=== PATIENT | female | born 1990 | race Caucasian/White ===

== ENCOUNTER 2022-04-05 12:18 | Emergency (ER) | payer OTHER, SELFPAY ==
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
[2022-04-05 12:33] VITALS: BP 115/56; PULSE 64; RESP 16; TEMP 36.6; O2SAT 97; BMI 25.7
[2022-04-05] MEDS: Cyclobenzaprine HCl 10 MG TABLET PO (13:28)
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
== END 2022-04-05 18:48 | disposition home or self-care (01) ==
PROVIDERS: Emergency Provider Emergency Medicine
DX: S06.0X1A Concussion with loss of consciousness of 30 minutes or less, initial encounter (principal); S13.4XXA Sprain of ligaments of cervical spine, initial encounter; S29.012A Strain of muscle and tendon of back wall of thorax, initial encounter; S39.012A Strain of muscle, fascia and tendon of lower back, initial encounter; V43.02XA Car driver injured in collision with other type car in nontraffic accident, initial encounter; Y93.89 Activity, other specified; Y92.481 Parking lot as the place of occurrence of the external cause; Y99.9 Unspecified external cause status
CPT/HCPCS: 70450; 72072; 72100; 72125; 99283; 99284

== ENCOUNTER 2023-04-07 20:27 | Emergency (ER) | payer MEDICARE, MEDICAID, SELFPAY ==
--- NOTE | 2023-04-07 20:30 | ECG_ITS ---
Test Reason : CP Blood Pressure : / mmHG Vent. Rate : 072 BPM Atrial Rate : 072 BPM P-R Int : 122 ms QRS Dur : 090 ms QT Int : 408 ms P-R-T Axes : 081 064 056 degrees QTc Int : 446 ms Normal sinus rhythm Possible Anterior infarct , age undetermined Abnormal ECG No previous ECGs available Referred By: Generic ED Physician Electronically Signed By:Andry Lance
[2023-04-07 20:39] VITALS: BP 115/51; BP 130/70; PULSE 76; PULSE 79; RESP 18; TEMP 36.6; O2SAT 100; O2SAT 99; BMI 17.2
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
[2023-04-07 22:03] LABS: Basophils Absolute Auto 0.1 X10*3/uL (0.0-0.2); Basophils Percent Auto 0.6 % (0-2); Eosinophils Absolute Auto 0.2 X10*3/uL (0.0-0.4); Eosinophils Percent Auto 1.6 % (0-4); Hematocrit 25.9 % (37.0-47.0); Hemoglobin 7.6 g/dl (12.0-16.0); Imm Gran Abs Auto 0.04 X10*3/uL (0.00-0.03); Imm Gran Pct Auto 0.4 % (0.0-0.4); Lymphocytes Absolute Auto 1.9 X10*3/uL (1.2-4.9); Lymphocytes Percent Auto 17.6 % (20-40); MANUAL DIFF FLAG NO; Mean Corpuscular HGB Conc 29.3 g/dl (31.0-35.0); Mean Corpuscular Hemoglobin 20.7 pg (27.0-33.0); Mean Corpuscular Volume 70.6 fL (80.0-98.0); Monocytes Absolute Auto 0.9 X10*3/uL (0.1-1.2); Neutrophils Absolute Auto 7.9 x10*3/uL (2.0-8.3); Neutrophils Percent Auto 71.8 % (45-73); Platelet Count 386 X10*3/uL (160-400); Red Blood Count 3.67 X10*6/uL (4.20-5.50); Red Cell Distribution Width 17.4 % (11.0-16.0)
[2023-04-07 22:17] LABS: Anion Gap 17 (12-20); Blood Urea Nitrogen 13 mg/dL (9-16); Calcium 9.6 mg/dL (8.4-10.2); Carbon Dioxide 19 mmol/L (22-29); Chloride 107 mmol/L (96-108); Creatinine Clr Calc Pharmacy 75.7; Estimated Glomerular Filt Rate > 60; Glucose Random 90 mg/dL (60-115); Potassium 3.6 mmol/L (3.3-5.1); Sodium 139 mmol/L (135-145)
[2023-04-07 22:19] LABS: Alanine Aminotransferase 16 U/L (0-31); Alkaline Phosphatase 91 U/L (39-117); Aspartate Amino Transferase 21 U/L (5-31); Bilirubin Direct 0.1 mg/dL (0.0-0.5); Bilirubin Total 0.3 mg/dL (0.0-1.0); Total Protein 8.3 g/dL (6.5-8.0)
[2023-04-07 22:30] LABS: Troponin-I High Sensitivity < 2.7 ng/L (<3.5-17.0)
[2023-04-08] MEDS: Doxycycline Monohydrate 100 MG CAPSULE PO (00:30)
[2023-04-08 00:40] VITALS: BP 109/60; PULSE 67; RESP 12; O2SAT 96
== END 2023-04-08 00:50 | disposition home or self-care (01) ==
PROVIDERS: Physician Assistant Medical; Emergency Provider Internal Medicine
DX: R07.89 Other chest pain (principal); F14.10 Cocaine abuse, uncomplicated; A49.02 Methicillin resistant Staphylococcus aureus infection, unspecified site; Z79.899 Other long term (current) drug therapy
CPT/HCPCS: 36415; 80048; 80076; 84484; 85025; 93005; 99283; 99284

== ENCOUNTER → 2023-04-07 20:30 | Outpatient (BNV) | payer MEDICARE, MEDICAID, SELFPAY | PROVIDERS: Emergency Provider Internal Medicine; Visit Provider Internal Medicine Cardiovascular Disease | DX: R94.31 Abnormal electrocardiogram [ECG] [EKG] (principal) | CPT/HCPCS: 93010 ==

== ENCOUNTER 2025-04-05 17:46 | Inpatient (IN) | payer MEDICARE, MEDICAID, SELFPAY ==
--- NOTE | ~2025-04-05 | CT_ITS ---
CLINICAL HISTORY: infection abscess osteo? CT LEFT UPPER EXTREMITY WITH CONTRAST COMPARISON: None provided. FINDINGS: The left forearm was scanned. No evidence of an acute fracture or dislocation within the left forearm. No aggressive lytic lesion or aggressive periosteal reaction to suggest osteomyelitis. No soft tissue gas. Multifocal confluent areas of soft tissue edema/fluid and stranding/inflammation are noted. Some areas of more confluent stranding are noted, for example seen on axial image 365 of series 7. A curvilinear area of more confluent edema/fluid is noted in the proximal forearm on axial image 337. Exact dimensions are difficult to quantify but this is estimated to measure approximately 1.7 x 0.4 cm. IMPRESSION: 1. No evidence of an acute fracture or dislocation. No evidence of osteomyelitis. No soft tissue gas. 2. Multifocal confluent areas of edema/fluid and stranding/inflammation are noted, as detailed above. A curvilinear area of more confluent edema/fluid is noted in the proximal forearm and measures 1.7 x 0.4 cm. Infection is not excluded. 3. Please see the separate report for the right forearm CT. This document has been electronically signed by: Chino Romero M.D. on 04/06/2025 01:20:40
--- NOTE | ~2025-04-05 | CT_ITS ---
CLINICAL HISTORY: infection abscess osteo? CT RIGHT UPPER EXTREMITY WITH CONTRAST COMPARISON: None provided. FINDINGS: The right forearm was scanned. The left forearm CT will be reported separately. No evidence of an acute fracture or dislocation within the right forearm. No aggressive lytic lesion or aggressive periosteal reaction to suggest osteomyelitis. No soft tissue gas. A few small soft tissue wounds are noted, for example seen on axial images 225-254 of series 8. Multifocal confluent areas of edema/fluid and stranding/inflammation are noted. Some areas of more confluent stranding/inflammation are noted, for example seen at the level of the proximal forearm on axial image 273. A few small areas of more confluent fluid are noted within this, for example estimated to measure 8-9 mm in size on axial image 293. Infection is not excluded. IMPRESSION: 1. No evidence of an acute fracture or dislocation. No aggressive lytic lesion or aggressive periosteal reaction to suggest osteomyelitis. No soft tissue gas. 2. Multifocal confluent areas of edema/fluid and stranding/inflammation are noted, as detailed above. A few small areas of more confluent fluid are noted at the level of the proximal forearm. Infection is not excluded. This document has been electronically signed by: Chino Romero M.D. on 04/06/2025 01:29:57
--- NOTE | ~2025-04-05 | XR_ITS ---
CLINICAL HISTORY: line placement ABDOMINAL X-RAY FRONTAL VIEW COMPARISON: None provided. FINDINGS: Single frontal view of the abdomen was performed. Contrast is noted within the renal collecting systems and urinary bladder. A right-sided central line is noted entering via a right inguinal approach. Exact positioning of the tip cannot be ascertained with x-ray, however the tip of the line projects to the right of the L4 vertebral body level, and is suspected to reside within the IVC. Correlation with blood flow return is advised. No evidence of a bowel obstruction or free air. A moderate amount of colonic stool is noted. IMPRESSION: 1. Right-sided central line is noted entering via a right inguinal approach. The exact positioning of the tip cannot be ascertained with x-ray, however the tip of the line projects to the right of the L4 vertebral body level and is suspected to reside within the IVC. Correlation with blood flow return is advised. This document has been electronically signed by: Chino Romero M.D. on 04/06/2025 01:11:10
[2025-04-05 17:51] VITALS: BP 141/73; PULSE 117; RESP 18; TEMP 36.9; O2SAT 97; BMI 20.5
--- NOTE | 2025-04-05 17:52 | ED_ITS ---
HPI - General Adult General Chief complaint: Extremity Injury, Upper Stated complaint: infection on both arms, fever, feeling sharp pain Time Seen by Provider: 04/05/25 19:25 Source: patient Limitations: no limitations History of Present Illness ED Provider: Chikis Paniagua PA-C HPI narrative: 34-year-old female with a history of IV drug abuse, presents with worsening pain, swelling and infection of bilateral forearms over the past 3 weeks. Patient admits she has been injecting heroin and cocaine at numerous sites, denies known fever. Related Data Previous Rx's ?Medication ?Instructions ?Recorded acetaminophen 500 mg tablet 1,000 mg (2 x 500 mg) PO Q ID PRN 04/05/22 (Tylenol Extra Strength) fever or pain #14 tabs cyclobenzaprine 10 mg tablet 10 mg PO Q8H #14 tabs 12/22 doxycycline hyclate 100 mg tablet 100 mg PO BID #20 ta bs 04/08/23 Allergies Allergy/AdvReac Type Severity Reaction Status Date / Time amoxicillin (AMOXICILLIN) Allergy Unknown ANAPHYLAXIS Verified 04/05/25 17:53 Penicillins (PENICILLINS) Allergy Unknown ANAPHYLAXIS Verified 04/05/25 17:53 escitalopram (From Lexapro) Allergy Facial Verified 04/05/25 17:53 Swelling ANTIDEPRESSANT Allergy Severe PT UNABLE Uncoded 04/05/25 17:53 TO RECALL NAME OF MED-FACIAL SWELLING Review of Systems 2 Review of Systems: Yes all other systems are reviewed and are negative Constitutional: Constitutional: Denies fatigue and Denies fever(s) Cardiovascular: Cardiovascular: Denies chest pain and Denies dyspnea Respiratory: Respiratory: Denies cough and Denies dyspnea Gastrointestinal: Gastrointestinal: Denies abdominal pain, Denies nausea and Denies vomiting Musculoskeletal: Musculoskeletal: Reports arthralgias and Reports joint swelling Integumentary/Breasts: Skin/Breast: Reports erythema, Reports sores and Reports wounds Endocrine: Endocrine: Denies fatigue PMFSH Past Medical History Attestation statement: The following information was validated with the patient. Social History Social History Unable to assess alcohol history related to: Unable to respond Use of substances other than those prescribed or required for medical reasons: Unable to respond Advance Directives: No Advance Directives Information Provided: No Physical Exam ED Vital Signs: Vital Signs - 24 hr 04/05/25 17:51 04/05/25 22:00 04/06/25 00:30 Temperature 98.5 F 97.8 F Pulse Rate 117 H 71 86 Respiratory Rate 18 16 16 Blood Pressure 141/73 H 104/49 L Pulse Oximetry 97 99 Oxygen Delivery Method Room Air Room Air 04/06/25 00:45 Temperature 98.0 F Pulse Rate Respiratory Rate Blood Pressure Pulse Oximetry Oxygen Delivery Method BMI result Body Mass Index 20.5 Const Other: Awake, appears intoxicated, appears older than stated age Orientation/consciousness: patient oriented x3 Resp Effort & Inspection: normal respiratory effort Cardio Other: Normal peripheral perfusion Skin Other: Warm dry no rash Neuro General: patient oriented x3, gait normal, no focal motor deficits and CN's II- XI intact bilaterally Extrem Other: Psych Other: Hostile, belligerent, often yelling profanities at staff and myself Course Course Course Narrative: RME performed by Cecile Rudd PA-C. Patient is a 34 year old assigned female at presenting to the emergency department with IVDU and bilateral arm infections. Detailed physical exam and review of systems are deferred to the payroll director. Labs ordered. Patient placed back in the waiting room pending room availability and results. Medications Administered Discontinued Medications Generic Name Dose Route Start Last Admin Trade Name Freq PRN Reason Stop Dose Admin Diphenhydramine HCl 25 mg 04/05/25 20:59 04/05/25 22:04 Diphenhydramine Hcl 50 Mg/Ml Vial IM 04/05/25 21:00 25 mg ONCE ONE Administration Haloperidol Lactate 5 mg 04/05/25 20:58 04/05/25 22:03 Haloperidol Lactate 5 Mg/Ml Vial IM 04/05/25 20:59 5 mg ONCE ONE Administration Hydromorphone HCl 1 mg 04/05/25 20:06 04/05/25 20:10 Hydromorphone Hcl 1 Mg/Ml Syringe IVPUSH 04/05/25 20:07 1 mg ONCE ONE Administration Protocol Sodium Chloride 1,629 mls @ 1,629 mls/hr 04/05/25 19:25 04/05/25 23:59 Ns 30 ml/kg infuse over 1 hr (1629 ml) 04/05/25 20:24 Infused IV Infusion .Q1H STA Vancomycin HCl 1,500 mg/ 500 mls @ 333.333 mls/hr 04/05/25 20:24 04/06/25 01:28 Sodium Chloride IV 04/05/25 21:53 Infused ONCE ONE Infusion Iohexol 85 ml 04/05/25 23:26 04/05/25 23:26 Iohexol 350 Mg/Ml 100 Ml Infus..Btl IV 04/05/25 23:27 85 ml ONCE ONE Administration Midazolam HCl 3 mg 04/05/25 20:58 04/05/25 22:04 Midazolam Hcl 2 Mg/2 Ml Vial IM 04/05/25 20:59 3 mg ONCE ONE Administration Procedures Procedure Narrative Procedure Narrative: Ultrasound-guided IV 18 gauge 1-3/4 inch IV placed in left upper extremity, adequate blood return, flushes well secured with Tegaderm. Within minutes a clotted while trying to obtain labs 18 gauge 1-3/4 inch IV placed in right upper extremity, adequate blood return, flushes well secured with Tegaderm. Shortly thereafter it clotted and then infiltrated, I did verify with the ultrasound that the IV was within the vessel while I flushed it with saline, there was no infiltration, it infiltrated regardless. Having to place a central line Central Line Placement Right Femoral: Time Out Performed: No Patient Placed on Monitor/Pulse Ox: Yes MD Prep: mask, gown and gloves Central Line Prep: Chlorhexidine scrub Local Anesthetic: lidocaine 1% and with epi Amount of anesthesia used (mL): 2 Ultrasound Used for Placement: Yes Central Line Lumen Inserted: triple Post Procedure: sutured in place, good blood return, all ports aspirated, flushed, capped and sterile dressing applied Patient Tolerated Procedure: well Complications: none Medical Decision Making Medical Decision Making [facility] Narrative: 34-year-old female with a history of IV drug abuse, presents with worsening pain, swelling and infection of bilateral forearms over the past 3 weeks. Patient admits she has been injecting heroin and cocaine at numerous sites, denies known fever. Problem: IV drug abuse History: Per patient I have considered the following differential diagnoses: Cellulitis, purulent cellulitis, abscess formation, septic joint, osteomyelitis Plan: The patient is able to flex and extend from the elbow, I do not believe she has septic joints. However I am concerned for abscess and/or osteomyelitis. We will be obtaining CT scans of bilateral upper extremities. My plan is to add on blood cultures, lactic, start vanco and Zosyn. The patient has received some Dilaudid, she will likely require further medications to help her pain and agitation at this point. I have independently reviewed the following tests: Labs: Leukocytosis of 13.4 with left shift, stable anemia, 7.4 and 24.5, no electrolyte abnormality, lactic 0.8, not , CRP 7.67, ESR 56 CT right upper extremity : IMPRESSION: 1. No evidence of an acute fracture or dislocation. No aggressive lytic lesion or aggressive periosteal reaction to suggest osteomyelitis. No soft tissue gas. 2. Multifocal confluent areas of edema/fluid and stranding/inflammation are noted, as detailed above. A few small areas of more confluent fluid are noted at the level of the proximal forearm. Infection is not excluded. CT left upper extremity :IMPRESSION: 1. No evidence of an acute fracture or dislocation. No evidence of osteomyelitis. No soft tissue gas. 2. Multifocal confluent areas of edema/fluid and stranding/inflammation are noted, as detailed above. A curvilinear area of more confluent edema/fluid is noted in the proximal forearm and measures 1.7 x 0.4 cm. Infection is not excluded. 3. Please see the separate report for the right forearm CT. Lab Data 04/05/25 19:02 04/05/25 19:02 Labs: Lab Results 04/05/25 04/05/25 Range/Units 19:02 23:05 WBC 13.4 H (4.8-10.8) X10*3/uL RBC 3.26 L (4.20-5.50) X10*6/uL Hgb 7.4 L (12.0-16.0) g/dl Hct 24.5 L (37.0-47.0) % MCV 75.2 L (80.0-98.0) fL MCH 22.7 L (27.0-33.0) pg MCHC 30.2 L (31.0-35.0) g/dl RDW 14.8 (11.0-16.0) % Plt Count 306 (160-400) X10*3/uL MPV 9.7 (9.4-12.3) fL Immature Gran % (Auto) 0.3 (0.0-0.4) % Neut % (Auto) 76.4 H (45-73) % Lymph % (Auto) 14.4 L (20-40) % Russell % (Auto) 7.2 (2-11) % Eos % (Auto) 1.3 (0-4) % Baso % (Auto) 0.4 (0-2) % Lymph # (Auto) 1.9 (1.2-4.9) X10*3/uL Russell # (Auto) 1.0 (0.1-1.2) X10*3/uL Eos # (Auto) 0.2 (0.0-0.4) X10*3/uL Baso # (Auto) 0.1 (0.0-0.2) X10*3/uL Abs Immat Gran (auto) 0.04 H (0.00-0.03) X10*3/uL Absolute Neuts (auto) 10.3 H (2.0-8.3) x10*3/uL Absolute Nucleated RBC 0.000 (0.0-0.012) X10*3/uL Nucleated RBC % (auto) 0.0 (0.0-0.2) /100WBC ESR 56 H (0-20) MM/HR Sodium 136 (135-145) mmol/L Potassium 3.7 (3.3-5.1) mmol/L Chloride 104 (96-108) mmol/L Carbon Dioxide 25 (22-29) mmol/L Anion Gap 11 L (12-20) BUN 16 (9-16) mg/dL Creatinine 0.62 (0.5-1.4) mg/dL Estim Creat Clear Calc 107.5 Estimated GFR > 60 Random Glucose 96 (60-115) mg/dL Lactic Acid 0.8 (0.5-2.0) mmol/L Calcium 9.1 (8.4-10.2) mg/dL Magnesium 2.0 (1.6-2.6) mg/dL Total Bilirubin 0.3 (0.0-1.0) mg/dL AST 30 (5-31) U/L ALT 13 (0-31) U/L Alkaline Phosphatase 69 (39-117) U/L C-Reactive Protein 7.67 H (< or = 0.50) mg/dL Total Protein 8.3 H (6.5-8.0) g/dL Albumin 4.0 (3.5-5.0) g/dL Critical Care Time Critical Care Time Critical Care Time: Yes Total Critical Care Time: 35 Attestation: I Chikis Paniagua PA-C have personally performed 35 minutes of critical care time not including lines and procedures; sepsis, IV drug abuse, IV analgesia, intramuscular medications for anxiety Discharge Plan Discharge Clinical Impression: Cellulitis of arm, left, Cellulitis of right arm, Drug abuse, IV, Polysubstance abuse, Anemia Patient Disposition: Admitted As Inpatient Print Language: Yi
[2025-04-05 19:07] LABS: MANUAL DIFF FLAG NO
[2025-04-05 19:09] LABS: Hematocrit 24.5 % (37.0-47.0); Hemoglobin 7.4 g/dl (12.0-16.0); Imm Gran Abs Auto 0.04 X10*3/uL (0.00-0.03); Imm Gran Pct Auto 0.3 % (0.0-0.4); Lymphocytes Absolute Auto 1.9 X10*3/uL (1.2-4.9); Mean Corpuscular HGB Conc 30.2 g/dl (31.0-35.0); Mean Corpuscular Hemoglobin 22.7 pg (27.0-33.0); Mean Corpuscular Volume 75.2 fL (80.0-98.0); NRBC Abs Auto 0.000 X10*3/uL (0.0-0.012); NRBC Pct Auto 0.0 /100WBC (0.0-0.2); Platelet Count 306 X10*3/uL (160-400); Red Blood Count 3.26 X10*6/uL (4.20-5.50); White Blood Count 13.4 X10*3/uL (4.8-10.8)
[2025-04-05 19:26] LABS: Alanine Aminotransferase 13 U/L (0-31); Albumin Level 4.0 g/dL (3.5-5.0); Alkaline Phosphatase 69 U/L (39-117); Anion Gap 11 (12-20); Aspartate Amino Transferase 30 U/L (5-31); Blood Urea Nitrogen 16 mg/dL (9-16); Calcium 9.1 mg/dL (8.4-10.2); Carbon Dioxide 25 mmol/L (22-29); Chloride 104 mmol/L (96-108); Creatinine Clr Calc Pharmacy 107.5; Estimated Glomerular Filt Rate > 60; Magnesium 2.0 mg/dL (1.6-2.6); Potassium 3.7 mmol/L (3.3-5.1); Sodium 136 mmol/L (135-145); Total Protein 8.3 g/dL (6.5-8.0)
--- NOTE | 2025-04-05 20:16 | PC.NURSE ---
US guided IV needed to be placed, patient admitted to using veins for IVDU. Difficult stick, multiple wounds bilateral arms. CT Scan needed, unable to start fluids. IV hydromorphone given for pain. Patient stating she felt the medication effects, after with saline pushed slowly, pt told senior underwriter to stop using the IV as her arm hurts. [place] for infiltrate, none noted.
--- NOTE | 2025-04-05 20:35 | PC.NURSE ---
Patient unale to handle fluids at ordered dose. Titrated dose until patient was able to handle fluids. Rate is set at 250/hr. Notified provider.
--- NOTE | 2025-04-05 21:33 | PC.NURSE ---
Patient requires a central line for access, awaiting a room for provider to put central line. Fluids, vanco are on hold until access is available. Provider is aware.
[2025-04-05 22:00] VITALS: BP 104/49; PULSE 71; RESP 16; O2SAT 99
[2025-04-05] MEDS: iohexoL 350 MG/ML 100 ML INFUS..BTL 85 ML IV (23:26)
[2025-04-05] MEDS: SODIUM CHLORIDE 1629 ML IV (23:48)
[2025-04-06] VITALS (11 sets, daily range): BP systolic 93–114; BP diastolic 41–56; PULSE 60–86; RESP 14–18; TEMP 36.6–37.3; O2SAT 97–100; BMI 21.1
--- NOTE | 2025-04-06 02:45 | PM.IMHP ---
History of Present Illness Date of Service: 04/06/25 <[facility] - Last Filed: 04/06/25 03:29> Attending physician on admission: Miriam East <[facility] - Last Filed: 04/06/25 03:29> Chief Complaint: abscess/ infection BUE IVDA <[facility] - Last Filed: 04/06/25 03:29> Pt is a 34 yo female with PMH IVDA with heroin and cocaine last 3 years intermittently, substance abuse disorder last 5 years was on methadone until 2-3 months ago through [facility], tobacco dependence, depression/ anxiety currently homeless, dental caries presents to ED with complaints of pain and possible infection B arms from ongoing IVDA for the last 2 months. Pt would not come in sooner as she was fearful and her significant other was incarcerated and released today and pt agreed to be seen. Pt unable to provide HPI, PMH, PSH as she was sedated for central line placement in R femoral due to poor peripheral access. KUB confirms confirmation with adequate blood flow. Pt's ESR and CRP elevated. Pt has a leukocytosis but no fever. CT of R and L arms noted fluid collections without evidence of OM, or soft tissue gas. Pt has never been seen in ED setting for this issue so far. Significant other denies pt has hx of endocarditis, sepsis in the past. Pt does have very poor dentition but no recent complaints of dental pain or abscess. Pt has been homeless for the last 2-3 months but was receiving methadone prior and fell off track. Pt has lost care of her children as well per her SO, also the father. The children are currently with a family member. Pt started on Vancomycin in the ED. Affected sites, Left arm greater than R arm, with notable swelling, but no open areas available to culture. Pt also injects in the upper throat area with injection sites noted but no swelling or drainage. No trackes noted in BLE, feet. Blood cultures drawn. UA, drug screen and HCG pending. <[facility] - Last Filed: 04/06/25 03:29> Review of Systems Review of Systems: Yes Unobtainable due to mental condition (under sedation for recent central line placement ) <[facility] - Last Filed: 04/06/25 03:29> [facility] Medical History: Medical History (Updated 04/06/25 @ 03:11 by CAROLA Benoit) Tobacco dependence Depression Dental caries Drug abuse, IV Anemia Polysubstance abuse <[place] ALAINA Sylvester - Last Filed: 04/06/25 03:29> Cognitive capacity: sedated currently arousable with verbal stimuli <[place] Nga [facility] - Last Filed: 04/06/25 03:29> Functional capacity: independent ambulation [facility] - Last Filed: 04/06/25 03:29> Patient : No (testing pending ) <Leila Nga [facility] - Last Filed: 04/06/25 03:29> Pertinent family history: pt unable to provide <[place] [facility] - Last Filed: 04/06/25 03:29> Social History: Social History (Updated 04/06/25 @ 03:13 by CAROLA Benoit) Housing: Homeless Unable to assess alcohol history related to: Unable to respond Patient Tobacco Use Status: Current everyday Tobacco user Tobacco use type: Cigarette Cigarette Packs Per Day: 1 Use of substances other than those prescribed or required for medical reasons: Yes Substance Use Type: Crack/Cocaine and Heroin Substance Use Type Other:: IVDA Substance Use Frequency: Chronic Longstanding Advance Directives: No Advance Directives Information Provided: No Nutrition Risks: No Nutritional Risk Patient : No (testing pending ) <Leila Nga [facility] - Last Filed: 04/06/25 03:29> Ebola Risk: Travel/Contact With Anyone From Affected Area/s: No <[facility] - Last Filed: 04/06/25 03:29> Has Patient Experienced Ebola Symptoms: No <Leila Sylvester [facility] - Last Filed: 04/06/25 03:29> Meds Allergies/Adverse reactions: Allergies Allergy/AdvReac Type Severity Reaction Status Date / Time amoxicillin (AMOXICILLIN) Allergy Unknown ANAPHYLAXIS Verified 04/05/25 17:53 Penicillins (PENICILLINS) Allergy Unknown ANAPHYLAXIS Verified 04/05/25 17:53 escitalopram (From Lexapro) Allergy Facial Verified 04/05/25 17:53 Swelling ANTIDEPRESSANT Allergy Severe PT UNABLE Uncoded 04/05/25 17:53 TO RECALL NAME OF MED-FACIAL SWELLING <ALAINA Benoit - Last Filed: 04/06/25 03:29> Active Medications: Current Medications Acetaminophen (Acetaminophen 325 Mg Tablet) 650 mg PO Q6H PRN PRN Reason: Pain, Mild 1-3,fever,headache Albuterol/Ipratropium (Albuterol/Iprat 2.5/0.5mg 3 Ml Ampul.Neb) 3 ml INHALE Q4H PRN PRN Reason: Shortness of Breath/Wheezing Calcium Carbonate (Calcium Carbonate 750 Mg Tab.Chew) 750 mg PO Q4H PRN PRN Reason: Heartburn Magnesium Hydroxide (Milk Of Magnesia 30 Ml Oral.Susp) 30 ml PO DAILY PRN PRN Reason: Constipation Melatonin (Melatonin 3 Mg Tablet) 6 mg PO BEDTIME PRN PRN Reason: Insomnia Ondansetron HCl (Ondansetron Hcl 4 Mg/2 Ml Vial) 4 mg IVPUSH Q8H PRN PRN Reason: Nausea and Vomiting Pharmacy Consult (Consult Rx Vancomycin Dosing) 1 each MISCELLANE DAILY PRN PRN Reason: Consult order Sodium Chloride (0.9 % Sodium Chloride Flush 3 Ml Syringe) 3 ml IVFLUSH QSHIFT [facility] <[facility] - Last Filed: 04/06/25 03:29> Physical Exam Vital Signs and Narrative: Vital Signs: Last Vital Signs Temp 98.0 F 04/06/25 00:45 Pulse 86 04/06/25 00:30 Resp 16 04/06/25 00:30 BP 104/49 L 04/05/25 22:00 Pulse Ox 99 04/05/25 22:00 O2 Del Method Room Air 04/05/25 22:00 BMI result Body Mass Index 20.5 <[facility] - Last Filed: 04/06/25 03:29> Pt is currently sedated, s/p central line placement Neuro: unable to assess CN II-XII HEENT: normocephalic, atraumatic, PERRLA (constricted +1), dentitiion poor condition Cardio: S1S2 REG, no murmur, no JVD, no edema BLEs Pulm: lungs diminshed B ABD: soft, NT, no guarding, active bowel sounds noted EXT: cracked skin B heels, no track mendez or edema Psych: unable to assess Skin: B AC areas of cellulitis, infection with warmth, no drainage Injection sites middle of upper chest/throat <[facility] - Last Filed: 04/06/25 03:29> Results Labs CBC and Chem 7: 04/05/25 19:02 04/05/25 19:02 <[facility] - Last Filed: 04/06/25 03:29> Labs: Laboratory Results - last 24 hr 04/05/25 04/05/25 19:02 23:05 MCV 75.2 L MCH 22.7 L MCHC 30.2 L RDW 14.8 Plt Count 306 MPV 9.7 Immature Gran % (Auto) 0.3 Neut % (Auto) 76.4 H Lymph % (Auto) 14.4 L [place] % (Auto) 7.2 Eos % (Auto) 1.3 Baso % (Auto) 0.4 Lymph # (Auto) 1.9 [place] # (Auto) 1.0 Eos # (Auto) 0.2 Baso # (Auto) 0.1 Abs Immat Gran (auto) 0.04 H Absolute Neuts (auto) 10.3 H Absolute Nucleated RBC 0.000 Nucleated RBC % (auto) 0.0 ESR 56 H Anion Gap 11 L Estim Creat Clear Calc 107.5 Estimated GFR > 60 Random Glucose 96 Lactic Acid 0.8 Calcium 9.1 Magnesium 2.0 Total Bilirubin 0.3 AST 30 ALT 13 Alkaline Phosphatase 69 C-Reactive Protein 7.67 H Total Protein 8.3 H Albumin 4.0 <[facility] - Last Filed: 04/06/25 03:29> ECG Prior ECG tracings: not available for review <[facility] - Last Filed: 04/06/25 03:29> Assessment and Plan (1) Cellulitis of arm, left: Status: Acute <[facility] - Last Filed: 04/06/25 03:29> (2) Cellulitis of right arm: Status: Acute <[place] [facility]- - Last Filed: 04/06/25 03:29> Pt is a 34 yo female with PMH IVDA with heroin and cocaine last 3 years intermittently, substance abuse disorder last 5 years was on methadone until 2-3 months ago through [facility], tobacco dependence, depression/ anxiety currently homeless, dental caries presents to ED with complaints of pain and possible infection B arms from ongoing IVDA for the last 2 months. Pt has been diagnosed with cellulits BUE, CT neg for OM or soft tissue gas. BLood cultures pending. BUE cellulitis from IVDA (heroin and cocaine) Pt started on Vancomcyin in ED, Pharmacy consulted IVF provided in ED CT neg for OM, soft tissue gas General surgery consulted, ? need for I/D of affected areas Central line placed in ED: R femoral due to poor access in BUE's Follow blood cultures LA 0.8, noted leukocytosis with elevated ESR and CRP HIV and hepatitis testing ordered Pt does not meet criteria for sepsis at this time Echo ordered to rule out endocarditis Addictions consulted - pt was on methadone via [facility] abiout 2-3 months ago Dental Caries Pt will need outpatient follow up Anemia Checking iron panel and B12 No indication for transfusion at this time Monitor H/H daily Tobacco dependence Holding off on NRT therapy at this time Discuss with pt when awake and able to participate Homelessness CM consulted DVT prophylaxis: held in case procedure needed MED REC PENDING FULL CODE <[facility] - Last Filed: 04/06/25 03:29> Pt is a 34 yo female with PMH IVDA with heroin and cocaine last 3 years intermittently, substance abuse disorder last 5 years was on methadone until 2-3 months ago through [facility], tobacco dependence, depression/ anxiety currently homeless, dental caries presents to ED with complaints of pain and possible infection B arms from ongoing IVDA for the last 2 months. Pt has been diagnosed with cellulits BUE, CT neg for OM or soft tissue gas. BLood cultures pending. BUE cellulitis from IVDA (heroin and cocaine) Pt started on Vancomcyin in ED, Pharmacy consulted IVF provided in ED CT neg for OM, soft tissue gas General surgery consulted, ? need for I/D of affected areas Central line placed in ED: R femoral due to poor access in BUE's Follow blood cultures LA 0.8, noted leukocytosis with elevated ESR and CRP HIV and hepatitis testing ordered Pt does not meet criteria for sepsis at this time Addictions consulted - pt was on methadone via [facility] abiout 2-3 months ago Dental Caries Pt will need outpatient follow up Anemia Checking iron panel and B12 No indication for transfusion at this time Monitor H/H daily Tobacco dependence Holding off on NRT therapy at this time Discuss with pt when awake and able to participate Homelessness CM consulted DVT prophylaxis: held in case procedure needed MED REC PENDING FULL CODE <Miriam East MD - Last Filed: 04/06/25 04:37> Quality Stroke Does the patient have a stroke diagnosis?: No <Leila Nga, CERTIFIED SURGICAL TECHNICIAN-BC - Last Filed: 04/06/25 03:29> Reason for No Anti-thrombotic by Day Two: Contraindicated <Leila Nga, CERTIFIED SURGICAL TECHNICIAN-BC - Last Filed: 04/06/25 03:29> VTE Prior VTE?: No <[place] Nga, [facility] - Last Filed: 04/06/25 03:29> VTE Risk Level:: Medical - moderate - high <Leila Nga, [facility] - Last Filed: 04/06/25 03:29> VTE Device Contraindication: N/A - Device Ordered <[place] Nga, [facility]- - Last Filed: 04/06/25 03:29> VTE Drug Contraindication: N/A - Med Ordered <Leila Nga, [facility]- - Last Filed: 04/06/25 03:29>
--- NOTE | 2025-04-06 02:47 | PC.NURSE ---
Patient woke up demanding she needed to pee right now. Patient was put on a bed bergeron in order to urinate. Patient filled the bedpan and more. Patient was cleaned up, bed bergeron removed, bed was cleaned with fresh sheets and pads under her. Repositioned until comfortable. Patient given a warm blanket after.
[2025-04-06 04:30] LABS: Appearance Urine Clear; Glucose Urine UA Negative (Negative); PH 7.0 (5.0-9.0); Specific Gravity - Urine 1.025 (1.005-1.025); UMIC TRIGGER UA YES
[2025-04-06 04:40] LABS: Cannabinoid Screen Urine Not Detected (Not Detect)
[2025-04-06 05:29] LABS: MANUAL DIFF FLAG NO
[2025-04-06 05:31] LABS: Imm Gran Abs Auto 0.02 X10*3/uL (0.00-0.03); Imm Gran Pct Auto 0.3 % (0.0-0.4); Lymphocytes Absolute Auto 1.8 X10*3/uL (1.2-4.9); Mean Corpuscular HGB Conc 30.0 g/dl (31.0-35.0); Mean Corpuscular Hemoglobin 22.7 pg (27.0-33.0); Mean Corpuscular Volume 75.8 fL (80.0-98.0); NRBC Abs Auto 0.000 X10*3/uL (0.0-0.012); NRBC Pct Auto 0.0 /100WBC (0.0-0.2); Platelet Count 246 X10*3/uL (160-400); Red Blood Count 2.73 X10*6/uL (4.20-5.50); White Blood Count 7.9 X10*3/uL (4.8-10.8)
[2025-04-06 05:40] LABS: Hematocrit 20.7 % (37.0-47.0); Hemoglobin 6.2 g/dl (12.0-16.0)
--- NOTE | 2025-04-06 05:45 | PM.EVENT ---
Event Note Date of Service: 04/06/25 Event Note: AM H/H 6.2/20.7, type and screen pending, consent for blood transfusion obtained with pt. Reviewed risks associated with blood transfusion including reacton were explained. Ordered protonix 40 IV BID and stool for occult. Iron panel and B12 pending. Time Spent With Patient Time: Total time managing care of this patient today ____ minutes.
[2025-04-06 05:46] LABS: Anion Gap 6 (12-20); Blood Urea Nitrogen 8 mg/dL (9-16); Calcium 7.5 mg/dL (8.4-10.2); Carbon Dioxide 26 mmol/L (22-29); Chloride 111 mmol/L (96-108); Creatinine Clr Calc Pharmacy 130.6; Estimated Glomerular Filt Rate > 60; Iron 25 mcg/dL (30-160); Percent Iron Saturation 10 % (15-50); Potassium 3.4 mmol/L (3.3-5.1); Sodium 140 mmol/L (135-145); Total Iron Binding Capacity 239 mcg/dL (228-428); Unsaturated Iron Binding 214 ug/dL
--- NOTE | 2025-04-06 06:02 | PC.NURSE ---
Critical H&H 6.2/20.7, Leila Michael SCIENCE SPECIALIST notified and ordered for Type and Screen. Leila came to bedside to review risks with patient and sign consent form with patient. Type and screen collected. Awaiting for it to be ready. Pt resting in bed, eyes closed, oral temp elevated, skin hot to touch. Pt refusing rectal temp. IV Vanco running at this time. call gallegos within reach, s/o at bedside. Both pt and s/o aware of plan of care at this time.
[2025-04-06 06:24] LABS: Folate 9.3 ng/mL (> or = 4.0); Vitamin B12 381 pg/mL (200-900)
--- NOTE | 2025-04-06 08:08 | PHA.MEDREC ---
Addendum entered by Samina Pleitez RP 04/06/25 08:22: Reviewed by [facility] Original Note: Pharmacy Consult ? Medication Reconciliation Pharmacy has completed the medication reconciliation. Spoke with pt significant other at bedside and he confirmed the pt is not taking any medications at this time.
[2025-04-06] MEDS: 0.9 % Sodium Chloride Flush 3 ML SYRINGE IVFLUSH (08:27)
[2025-04-06 08:34] LABS: HBS Num1 10.35 mIU/mL (0-7.99); HBc Num1 0.22 S/CO (0.00-0.79); HBsAGNum1 0.46 S/CO (0.00-0.99); HIV Num 1 0.04 S/CO (0.00-0.99); Hepatitis A Antibody IgM 0.24 Index (0-0.79); Hepatitis B Surface Antigen Negative (Negative); ~HepC Num1 0.12 S/CO (0.00-0.79); ~Hepatitis A Antibody IgM Nonreactive (Nonreactive); ~Hepatitis C Antibody Nonreactive (Nonreactive)
[2025-04-06 10:28] LABS: HBS Num2 10.80 mIU/mL (0-7.99); HBS Num3 11.19 mIU/mL (0-7.99); ~Hepatitis B Surface Antibody GRAYZONE (Nonreactive)
--- NOTE | 2025-04-06 10:44 | P.CONGS_ITS ---
History of Present Illness Consult details Consult date: 04/06/25 <Timur Gonzalez PA-C - Last Filed: 04/06/25 11:10> Narrative: 34 yo female with PMH IVDA with heroin and cocaine last 3 years intermittently, substance abuse disorder last 5 years was on methadone until 2-3 months ago through [facility], tobacco dependence, depression/ anxiety currently homeless, dental caries admitted to [facility] with complaints of pain and possible infection B arms from ongoing IVDA for the last 2 months. Patient was not cooperative during exam. Perseverating about receiving methadone due to withdrawing. She was able to endorse pain in both forearms at the sites of the wound. On admission patient had central line placed for peripheral venous access. She was found to have elevated inflammatory markers and leukocytosis. CT scans note small fluid collections in bilateral forearm as well as significant inflammation and edema of the forearms. She was started on vancomycin in the ED. this morning patient was acutely anemic H&H 6.2/20.7, now receiving transfusion. <Timur Gonzalez PA-C - Last Filed: 04/06/25 11:10> Review of Systems 2 Review of Systems: Yes all other systems are reviewed and are negative < Timur Gonzalez PA-C - Last Filed: 04/06/25 11:10> [facility] Past Medical History Medical History: Medical History Tobacco dependence Depression Dental caries Drug abuse, IV Anemia Polysubstance abuse <Timur Gonzalez PA-C - Last Filed: 04/06/25 11:10> Social History Social History: Social History (Updated 04/06/25 @ 03:13 by Leila Sylvester ASSISTANT DIRECTOR OF RESIDENCE [facility]) Household Members: None Housing: Homeless Are you a primary continuum of care manager to a significant other at home: No Do you presently have visiting nurse or other home services: No Unable to assess alcohol history related to: Unable to respond Patient Tobacco Use Status: Current everyday Tobacco user Tobacco use type: Cigarette Cigarette Packs Per Day: 1 Cigarettes Per Day: 20.0 Second Hand Smoke Exposure: No Substance Use Type: Crack/Cocaine and Heroin service: No <ERENDIRA Solis Last Filed: 04/06/25 11:10> Travel History Ebola Risk: Travel/Contact With Anyone From Affected Area/s: No <Timur Gonzalez PA-C - Last Filed: 04/06/25 11:10> Has Patient Experienced Ebola Symptoms: No <Timur Gonzalez PA-C - Last Filed: 04/06/25 11:10> Meds Allergies/Adverse reactions: Allergies Allergy/AdvReac Type Severity Reaction Status Date / Time amoxicillin (AMOXICILLIN) Allergy Unknown ANAPHYLAXIS Verified 04/07/25 13:06 Penicillins (PENICILLINS) Allergy Unknown ANAPHYLAXIS Verified 04/07/25 13:06 escitalopram (From Lexapro) Allergy Facial Verified 04/07/25 13:06 Swelling ANTIDEPRESSANT Allergy Severe PT UNABLE Uncoded 04/07/25 13:06 TO RECALL NAME OF MED-FACIAL SWELLING <Timur Gonzalez PA-C - Last Filed: 04/06/25 11:10> Active Medications: Current Medications Acetaminophen (Acetaminophen 325 Mg Tablet) 650 mg PO Q6H PRN PRN Reason: Pain, Mild 1-3,fever,headache Last Admin: 04/06/25 08:39 Dose: 650 mg Albuterol/Ipratropium (Albuterol/Iprat 2.5/0.5mg 3 Ml Ampul.Neb) 3 ml INHALE Q4H PRN PRN Reason: Shortness of Breath/Wheezing Calcium Carbonate (Calcium Carbonate 750 Mg Tab.Chew) 750 mg PO Q4H PRN PRN Reason: Heartburn Vancomycin HCl 1,250 mg/ (Sodium Chloride) 250 mls @ 166.667 mls/hr IV Q12H [facility] Magnesium Hydroxide (Milk Of Magnesia 30 Ml Oral.Susp) 30 ml PO DAILY PRN PRN Reason: Constipation Melatonin (Melatonin 3 Mg Tablet) 6 mg PO BEDTIME PRN PRN Reason: Insomnia Ondansetron HCl (Ondansetron Hcl 4 Mg/2 Ml Vial) 4 mg IVPUSH Q8H PRN PRN Reason: Nausea and Vomiting Pantoprazole Sodium (Pantoprazole Sodium 40 Mg/10 Ml Vial) 40 mg IVPUSH BID@0630,1630 [facility] Last Admin: 04/06/25 07:31 Dose: 40 mg Pharmacy Consult (Consult Rx Vancomycin Dosing) 1 each MISCELLANE DAILY PRN PRN Reason: Consult order Sodium Chloride (0.9 % Sodium Chloride Flush 3 Ml Syringe) 3 ml IVFLUSH QSHIFT [facility] Last Admin: 04/06/25 08:27 Dose: 3 ml <Timur Gonzalez PA-C - Last Filed: 04/06/25 11:10> Home medications: Home Medications ?Medication ?Instructions ?Recorded ?Confirmed ?Last Taken ?Type No Known Home Meds 04/06/25 04/06/25 Un known History <ERENDIRA Solis Last Filed: 04/06/25 11:10> Physical Exam 2 Vital Signs: Vital Signs: Last Vital Signs Temp 99.2 F 04/06/25 08:37 Pulse 70 04/06/25 08:37 Resp 15 04/06/25 08:37 BP 93/43 L 04/06/25 08:37 Pulse Ox 97 04/06/25 08:30 O2 Del Method Room Air 04/06/25 08:30 BMI result Body Mass Index 20.5 <ERENDIRA Solis Last Filed: 04/06/25 11:10> Skin: Other: Bilateral forearm wounds with multiple areas of ulceration. On the left proximal forearm there was an area that appears to be fluid-filled with some passive drainage with gentle palpation however the patient was not tolerant to this exam. Both forearms have significant swelling and erythema <ERENDIRA Solis Last Filed: 04/06/25 11:10> Results Labs Result diagrams: 04/07/25 06:46 04/07/25 06:46 <ERENDIRA Solis Last Filed: 04/06/25 11:10> Labs: Abnormal lab results 04/05/25 04/06/25 04/06/25 Range/Units 19:02 04:22 05:08 WBC 13.4 H (4.8-10.8) X10*3/uL RBC 3.26 L 2.73 L (4.20-5.50) X10*6/uL Hgb 7.4 L 6.2 L* (12.0-16.0) g/dl Hct 24.5 L 20.7 L* (37.0-47.0) % MCV 75.2 L 75.8 L (80.0-98.0) fL MCH 22.7 L 22.7 L (27.0-33.0) pg MCHC 30.2 L 30.0 L (31.0-35.0) g/dl Neut % (Auto) 76.4 H (45-73) % Lymph % (Auto) 14.4 L (20-40) % Abs Immat Gran (auto) 0.04 H (0.00-0.03) X10*3/uL Absolute Neuts (auto) 10.3 H (2.0-8.3) x10*3/uL ESR 56 H (0-20) MM/HR Chloride 111 H (96-108) mmol/L Anion Gap 11 L 6 L (12-20) BUN 8 L (9-16) mg/dL Calcium 7.5 L D (8.4-10.2) mg/dL Iron 25 L (30-160) mcg/dL % Saturation 10 L (15-50) % C-Reactive Protein 7.67 H (< or = 0.50) mg/dL Total Protein 8.3 H (6.5-8.0) g/dL Urine Blood Trace H (Negative) Urine Nitrite Positive H (Negative) Ur Leukocyte Esterase Trace H (Negative) Urine RBC 3-5 H (0-2) /HPF Urine Opiates Screen POSITIVE H (Not Detect) Urine Fentanyl Screen POSITIVE H (Not Detect) U Benzodiazepines Scrn POSITIVE H (Not Detect) Urine Cocaine Screen POSITIVE H (Not Detect) Crossmatch 04/06/25 Range/Units 05:55 WBC (4.8-10.8) X10*3/uL RBC (4.20-5.50) X10*6/uL Hgb (12.0-16.0) g/dl Hct (37.0-47.0) % MCV (80.0-98.0) fL MCH (27.0-33.0) pg MCHC (31.0-35.0) g/dl Neut % (Auto) (45-73) % Lymph % (Auto) (20-40) % Abs Immat Gran (auto) (0.00-0.03) X10*3/uL Absolute Neuts (auto) (2.0-8.3) x10*3/uL ESR (0-20) MM/HR Chloride (96-108) mmol/L Anion Gap (12-20) BUN (9-16) mg/dL Calcium (8.4-10.2) mg/dL Iron (30-160) mcg/dL % Saturation (15-50) % C-Reactive Protein (< or = 0.50) mg/dL Total Protein (6.5-8.0) g/dL Urine Blood (Negative) Urine Nitrite (Negative) Ur Leukocyte Esterase (Negative) Urine RBC (0-2) /HPF Urine Opiates Screen (Not Detect) Urine Fentanyl Screen (Not Detect) U Benzodiazepines Scrn (Not Detect) Urine Cocaine Screen (Not Detect) Crossmatch See Detail Short CBC 04/05/25 04/06/25 Range/Units 19:02 05:08 WBC 13.4 H 7.9 (4.8-10.8) X10*3/uL Hgb 7.4 L 6.2 L* (12.0-16.0) g/dl Hct 24.5 L 20.7 L* (37.0-47.0) % Plt Count 306 246 (160-400) X10*3/uL BMP 04/05/25 04/06/25 19:02 05:08 Sodium 136 140 Potassium 3.7 3.4 Chloride 104 111 H Carbon Dioxide 25 26 BUN 16 8 L Creatinine 0.62 0.51 Calcium 9.1 7.5 L D Liver Function 04/05/25 Range/Units 19:02 Total Bilirubin 0.3 (0.0-1.0) mg/dL AST 30 (5-31) U/L ALT 13 (0-31) U/L Alkaline Phosphatase 69 (39-117) U/L Albumin 4.0 (3.5-5.0) g/dL Urine 04/06/25 Range/Units 04:22 Urine Color Yellow Urine Appearance Clear Urine pH 7.0 (5.0-9.0) Ur Specific [place] 1.025 (1.005-1.025) Urine Protein Negative (Neg-Trace) mg/dL Urine Glucose (UA) Negative (Negative) mg/dL All other labs normal. <Timur Gonzalez PA-C - Last Filed: 04/06/25 11:10> Assessment and Plan (1) Drug abuse, IV: Status: Acute <ERENDIRA Solis Last Filed: 04/06/25 11:10> (2) Cellulitis of arm, left: Status: Acute <ERENDIRA Solis Last Filed: 04/06/25 11:10> (3) Cellulitis of right arm: Status: Acute <Timur Gonzalez PA-C - Last Filed: 04/06/25 11:10> [age] year old female with known IV drug abuse history, on methadone, also with polysubstance abuse, depression, anxiety, with cellulitic changes on both forearms from IV sites She has some drainage from both areas of the forearm Localized induration as well suggestive of fluid collections collections CAT scan difficult to interpret May be best to proceed with I&D under anesthesia I explained this to the patient and her significant other at bedside She has not very alert and seems to be uncooperative as well I did explain to her the technique of the planned procedure as well as the risks, benefits, and alternatives She will be placed on the schedule for I&D in the operating room tomorrow for both forearms Currently undergoing transfusion for anemia Low hemoglobin likely from chronic illness No obvious bleeding source or active bleeding currently I have seen and examined the patient independently <Brown Paul MD - Last Filed: 04/07/25 13:35> 34 yo female with PMH IVDA with heroin and cocaine last 3 years intermittently, substance abuse disorder last 5 years was on methadone until 2-3 months ago through [facility], tobacco dependence, depression/ anxiety currently homeless, dental caries admitted to [facility] for cellulitis and abscess formation a bilateral forearms secondary to IV drug use. Patient was largely non cooperative during this exam making evaluation difficult. I was unable to obtain a solid history, attempted to perform physical exam this was limited by the patient's pain and unwillingness to cooperate. She has been afebrile and hypotensive since admission. Bilateral forearms have significant edema and erythema with multiple ulcerations in the proximal aspect of both forearms. On the left there does appear to be a fluid collection that will need incision to drain. This area was passively draining a pinpoint amount of fluctuant discharge, however the patient did not tolerate palpation to the area. She will likely need to have an incision drainage under sedation in the OR, she is agreeable to this plan starting tomorrow. She was started on antibiotics in the ED, no cultures have been obtained, we will plan to obtain culture intraoperatively. Patient was currently receiving transfusion at the time of evaluation, we will need to trend H and H going forward. We will need addiction medicine consult to resume patient on methadone, I feel that she may leave AMA if this is not addressed in a timely fashion. Continue IV antibiotic Plan for I and D in OR tomorrow morning, NPO after midnight Addiction med consult pending <Timur Gonzalez PA-C - Last Filed: 04/06/25 11:10> Procedures Date of Service Date of Service: 04/06/25 <Timur Gonzalez PA-C - Last Filed: 04/06/25 11:10> 04/07/25 <Brown Paul MD - Last Filed: 04/07/25 13:35>
--- NOTE | 2025-04-06 10:49 | PC.NURSE ---
when transfusion started pt had temp 98.9. Per previous shift pt has had oral temps indicated a fever and need for rectal temp but pt refuses. Pt continues to refuse. Recheck temp 99.2 Medicated with tylenol per MAR for fever. pt feels warm to touch and reports chills.
--- NOTE | 2025-04-06 11:22 | PM.EVENT ---
Event Note Date of Service: 04/06/25 Event Note: Pt seen/examined, labs med, imaging reivwd Pt is a 34 yo female with PMH IVDA with heroin and cocaine last 3 years intermittently, substance abuse disorder last 5 years was on methadone until 2-3 months ago through [facility], tobacco dependence, depression/ anxiety currently homeless, dental caries presents to ED with complaints of pain and possible infection B arms from ongoing IVDA for the last 2 months. Pt has been diagnosed with cellulits BUE, and signficant anemia BUE cellulitis from IVDA (heroin and cocaine), possible abscess, culture pending Surgery planning I&D in OR tomorrow continue IV Abx with Vanco hold echo unless bacteremia Hep C, HIV negative Dental Caries Pt will need outpatient follow up Anemia, Hgb 6.2, likely chronic Checking iron panel and B12 transfused 1 unit, repeat H/H Tobacco dependence NRT Homelessness CM consulted DVT prophylaxis: held in case procedure needed Time Spent With Patient Time: Total time managing care of this patient today ____ minutes.
[2025-04-06] MEDS: Nicotine 14 MG PATCH.TD24 TRANSDERMA (12:06)
[2025-04-06] MEDS: Lactated Ringers 1,000 ML 125 ML IVCONT ×2 (12:08→20:10)
--- NOTE | 2025-04-06 15:56 | HO.ADDICT_ITS ---
History of Present Illness Date of Service: 04/06/2025 Chief Complaint: infected arms Reason for Consult: OUD Sources of Information: chart reviewed HPI Narrative: All information obtained from chart review as patient somnolent each time this teletypewriter installer attempted to meet with her X3. Patient is a 34 year old female with history of opiate and cocaine use, presented to ED reporting pain and wounds bilateral upper arms. Admitted with cellulitis and anemia requiring transfusion. Per H&P patient reported previously being prescribed methadone --a few months ago. No longer engaged in treatment and using both cocaine and fentanyl IV. Attempted to meet with patient X3 and each time, patient somnolent and unable to participate in interview. VSS--BP on the softer side. Per RN, patient has awoken briely a few time, but quickly falls back to sleep--has not c/o withdrawal sx. Did not appear diaphoretic or restless each time t/w saw her. Labs reviewed--HIV and hepatitis screens completed this admission UDS +cocain, benzos and fentanyl Medical Evaluation Reviewed: Yes Review of Systems Review of Systems Yes Unobtainable due to mental status Diagnostics Vital Signs (24Hr): Vital Signs - 24 hr 04/05/25 17:51 04/05/25 22:00 04/06/25 00:30 Temperature 98.5 F 97.8 F Pulse Rate 117 H 71 86 Respiratory Rate 18 16 16 Blood Pressure 141/73 H 104/49 L Pulse Oximetry 97 99 Oxygen Delivery Method Room Air Room Air 04/06/25 00:45 04/06/25 04:18 04/06/25 05:17 Temperature 98.0 F 99.0 F Pulse Rate 69 72 Respiratory Rate 15 14 Blood Pressure 100/45 L Pulse Oximetry 100 100 Oxygen Delivery Method Room Air Room Air 04/06/25 08:20 04/06/25 08:30 04/06/25 08:37 Temperature 98.9 F 98.9 F 99.2 F Pulse Rate 70 70 70 Respiratory Rate 15 16 15 Blood Pressure 99/41 L 99/41 L 93/43 L Pulse Oximetry 97 Oxygen Delivery Method Room Air 04/06/25 11:26 04/06/25 13:06 Temperature 98.4 F 99 F Pulse Rate 65 66 Respiratory Rate 15 16 Blood Pressure 114/42 L 114/42 L Pulse Oximetry 99 Oxygen Delivery Method Room Air BMI result Body Mass Index 20.5 Labs 04/06/25 05:08 04/06/25 05:08 Labs: Laboratory Results - last 48 hr 04/05/25 04/05/25 04/06/25 19:02 23:05 04:22 WBC 13.4 H RBC 3.26 L Hgb 7.4 L Hct 24.5 L MCV 75.2 L MCH 22.7 L MCHC 30.2 L RDW 14.8 Plt Count 306 MPV 9.7 Immature Gran % (Auto) 0.3 Neut % (Auto) 76.4 H Lymph % (Auto) 14.4 L [place] % (Auto) 7.2 Eos % (Auto) 1.3 Baso % (Auto) 0.4 Lymph # (Auto) 1.9 [place] # (Auto) 1.0 Eos # (Auto) 0.2 Baso # (Auto) 0.1 Abs Immat Gran (auto) 0.04 H Absolute Neuts (auto) 10.3 H Absolute Nucleated RBC 0.000 Nucleated RBC % (auto) 0.0 Smear Path Review ESR 56 H Sodium 136 Potassium 3.7 Chloride 104 Carbon Dioxide 25 Anion Gap 11 L BUN 16 Creatinine 0.62 Estim Creat Clear Calc 107.5 Estimated GFR > 60 Random Glucose 96 Lactic Acid 0.8 Calcium 9.1 Magnesium 2.0 Iron TIBC % Saturation Unsat Iron Binding Total Bilirubin 0.3 AST 30 ALT 13 Alkaline Phosphatase 69 C-Reactive Protein 7.67 H Total Protein 8.3 H Albumin 4.0 Vitamin B12 Folate Beta HCG, Quant < 2 Urine Color Yellow Urine Appearance Clear Urine pH 7.0 Ur Specific [place] [employer] 1.025 Urine Protein Negative Urine Glucose (UA) Negative Urine Ketones Negative Urine Blood Trace H Urine Nitrite Positive H Ur Leukocyte Esterase Trace H Urine RBC 3-5 H Urine WBC 0-5 Ur Squamous Epith Cells 0-2 Urine Bacteria 4+ Hyaline Casts 0-2 Urine Opiates Screen POSITIVE H Ur Buprenorphine Scrn Not Detected Ur Oxycodone Screen Not Detected Urine Methadone Screen Not Detected Urine Fentanyl Screen POSITIVE H Ur Barbiturates Screen Not Detected Ur Phencyclidine Scrn Not Detected Ur Amphetamines Screen Not Detected U Benzodiazepines Scrn POSITIVE H Urine Cocaine Screen POSITIVE H U Marijuana (THC) Screen Not Detected Hepatitis A IgM Ab Hep Bs Antigen Hep Bs Antibody Hep B Core Total Ab Hepatitis C Ab (EIA) HIV 1&2 Ab/P24 Ag 4thGn Blood Type Antibody Screen Crossmatch 04/06/25 04/06/25 05:08 05:55 WBC 7.9 RBC 2.73 L Hgb 6.2 L* Hct 20.7 L* MCV 75.8 L MCH 22.7 L MCHC 30.0 L RDW 14.8 Plt Count 246 MPV 10.4 Immature Gran % (Auto) 0.3 Neut % (Auto) 63.1 Lymph % (Auto) 23.1 [place] % (Auto) 9.9 Eos % (Auto) 3.2 Baso % (Auto) 0.4 Lymph # (Auto) 1.8 [place] # (Auto) 0.8 Eos # (Auto) 0.3 Baso # (Auto) 0.0 Abs Immat Gran (auto) 0.02 Absolute Neuts (auto) 5.0 Absolute Nucleated RBC 0.000 Nucleated RBC % (auto) 0.0 Smear Path Review SEE NOTE ESR Sodium 140 Potassium 3.4 Chloride 111 H Carbon Dioxide 26 Anion Gap 6 L BUN 8 L Creatinine 0.51 Estim Creat Clear Calc 130.6 Estimated GFR > 60 Random Glucose 84 Lactic Acid Calcium 7.5 L D Magnesium Iron 25 L TIBC 239 % Saturation 10 L Unsat Iron Binding 214 Total Bilirubin AST ALT Alkaline Phosphatase C-Reactive Protein Total Protein Albumin Vitamin B12 381 Folate 9.3 Beta HCG, Quant Urine Color Urine Appearance Urine pH Ur Specific [employer] Urine Protein Urine Glucose (UA) Urine Ketones Urine Blood Urine Nitrite Ur Leukocyte Esterase Urine RBC Urine WBC Ur Squamous Epith Cells Urine Bacteria Hyaline Casts Urine Opiates Screen Ur Buprenorphine Scrn Ur Oxycodone Screen Urine Methadone Screen Urine Fentanyl Screen Ur Barbiturates Screen Ur Phencyclidine Scrn Ur Amphetamines Screen U Benzodiazepines Scrn Urine Cocaine Screen U Marijuana (THC) Screen Hepatitis A IgM Ab Nonreactive Hep Bs Antigen Negative Hep Bs Antibody GRAYZONE Hep B Core Total Ab Nonreactive Hepatitis C Ab (EIA) Nonreactive HIV 1&2 Ab/P24 Ag 4thGn Nonreactive Blood Type B Positive Antibody Screen NEGATIVE Crossmatch See Detail Mental Status Exam Mental Status Exam Level of Consciousness: Lethargic (somnolent) Medications Medications Current Medications Acetaminophen (Acetaminophen 325 Mg Tablet) 650 mg PO Q6H PRN PRN Reason: Pain, Mild 1-3,fever,headache Last Admin: 04/06/25 08:39 Dose: 650 mg Albuterol/Ipratropium (Albuterol/Iprat 2.5/0.5mg 3 Ml Ampul.Neb) 3 ml INHALE Q4H PRN PRN Reason: Shortness of Breath/Wheezing Calcium Carbonate (Calcium Carbonate 750 Mg Tab.Chew) 750 mg PO Q4H PRN PRN Reason: Heartburn Vancomycin HCl 1,250 mg/ (Sodium Chloride) 250 mls @ 166.667 mls/hr IV Q12H [facility] Lactated Ringer's (Lr) 1,000 mls @ 125 mls/hr IVCONT .Q8H [facility] Last Admin: 04/06/25 12:08 Dose: 125 mls/hr Magnesium Hydroxide (Milk Of Magnesia 30 Ml Oral.Susp) 30 ml PO DAILY PRN PRN Reason: Constipation Melatonin (Melatonin 3 Mg Tablet) 6 mg PO BEDTIME PRN PRN Reason: Insomnia Nicotine (Nicotine 14 Mg Patch.Td24) 14 mg TRANSDERMA DAILY [facility] Last Admin: 04/06/25 12:06 Dose: 14 mg Ondansetron HCl (Ondansetron Hcl 4 Mg/2 Ml Vial) 4 mg IVPUSH Q8H PRN PRN Reason: Nausea and Vomiting Pantoprazole Sodium (Pantoprazole Sodium 40 Mg/10 Ml Vial) 40 mg IVPUSH BID@0630,1630 [facility] Last Admin: 04/06/25 07:31 Dose: 40 mg Pharmacy Consult (Consult Rx Vancomycin Dosing) 1 each MISCELLANE DAILY PRN PRN Reason: Consult order Sodium Chloride (0.9 % Sodium Chloride Flush 3 Ml Syringe) 3 ml IVFLUSH QSHIFT [facility] Last Admin: 04/06/25 08:27 Dose: 3 ml Allergies Allergies Allergy/AdvReac Type Severity Reaction Status Date / Time amoxicillin (AMOXICILLIN) Allergy Unknown ANAPHYLAXIS Verified 04/05/25 17:53 Penicillins (PENICILLINS) Allergy Unknown ANAPHYLAXIS Verified 04/05/25 17:53 escitalopram (From Lexapro) Allergy Facial Verified 04/05/25 17:53 Swelling ANTIDEPRESSANT Allergy Severe PT UNABLE Uncoded 04/05/25 17:53 TO RECALL NAME OF MED-FACIAL SWELLING Assessment & Plan Assessment & Plan (1) Opioid use disorder: Status: Acute Code(s): F11.90 - Opioid use, unspecified, uncomplicated Assessment and Plan: * COWS ordered q 6H * methadone 10mg q4H PRN for withdrawal * will check in with N regarding outpatient dosing in the AM * will continue to follow Total time managing care of this patient today ___35_ minutes. PMFSH Past Medical History Medical History (Updated 04/06/25 @ 15:56 by Sarah Rawls CNP) Tobacco dependence Depression Dental caries Drug abuse, IV Anemia Polysubstance abuse Social History Social History (Updated 04/06/25 @ 03:13 by CIERRA Benoit-) Household Members: None Housing: Homeless Do you presently have visiting nurse or other home services: No Unable to assess alcohol history related to: Unable to respond Patient Tobacco Use Status: Current everyday Tobacco user Tobacco use type: Cigarette Cigarette Packs Per Day: 1 Cigarettes Per Day: 20.0 Second Hand Smoke Exposure: No Substance Use Type: Crack/Cocaine and Heroin
[2025-04-06] MEDS: methADONE HCl 20 MG/2 ML ORAL.CONC 10 MG PO (17:28)
--- NOTE | 2025-04-06 18:05 | PC.NURSE ---
Patient requested that her boyfriend stays with her overnight ,Diesel Mechanic Helper Denisse notified.RN offered camera in pt room for safety but patient refused.
[2025-04-07] VITALS (14 sets, daily range): BP systolic 90–132; BP diastolic 43–66; PULSE 45–80; RESP 12–18; TEMP 36.1–36.8; O2SAT 96–100
[2025-04-07] MEDS: Lactated Ringers 1,000 ML 125 ML IVCONT ×2 (04:17→14:36)
[2025-04-07 07:26] LABS: Hematocrit 23.8 % (37.0-47.0); Hemoglobin 7.1 g/dl (12.0-16.0)
[2025-04-07 07:38] LABS: Creatinine Clr Calc Pharmacy 113.8; Estimated Glomerular Filt Rate > 60
--- NOTE | 2025-04-07 07:54 | P.PNGS_ITS ---
Subjective Subjective Date of Service: 04/07/25 <Brown Paul MD - Last Filed: 04/07/25 13:36> 04/07/25 <Timur Gonzalez PA-C - Last Filed: 04/07/25 08:29> Interval history: No new complaints Says she has pain on both forearms as well as right hand posteriorly Transfused for anemia No obvious bleeding source, no active bleeding <Brown Paul MD - Last Filed: 04/07/25 13:36> Physical Exam 2 Vital Signs: Vital Signs: Last Vital Signs Temp 97.6 F 04/07/25 07:11 Pulse 56 04/07/25 07:11 Resp 16 04/07/25 07:11 BP 91/55 L 04/07/25 07:11 Pulse Ox 96 04/07/25 07:11 O2 Del Method Room Air 04/07/25 07:11 BMI result Body Mass Index 21.1 <Brown Paul MD - Last Filed: 04/07/25 13:36> Const: General: comfortable and no acute distress <Brown Paul MD - Last Filed: 04/07/25 13:36> Resp: Effort & Inspection: normal respiratory effort <Brown Paul MD - Last Filed: 04/07/25 13:36> Cardio: Rate: regular rate <Brown Paul MD - Last Filed: 04/07/25 13:36> Extrem: Other: Firm induration, severe tenderness on both forearms, scanty drainage, also with bullae on posterior aspect of right hand, severely tender <Brown Paul MD - Last Filed: 04/07/25 13:36> Other: Firm induration, severe tenderness on both forearms, scanty drainage, also with bullae on posterior aspect of right hand, severely tender <Timur Gonzalez PA-C - Last Filed: 04/07/25 08:29> Objective Data Active Medications Acetaminophen (Acetaminophen 325 Mg Tablet) 650 mg PO Q6H PRN PRN Reason: Pain, Mild 1-3,fever,headache Last Admin: 04/06/25 22:55 Dose: 650 mg Documented By: MIMI Albuterol/Ipratropium (Albuterol/Iprat 2.5/0.5mg 3 Ml Ampul.Neb) 3 ml INHALE Q4H PRN PRN Reason: Shortness of Breath/Wheezing Calcium Carbonate (Calcium Carbonate 750 Mg Tab.Chew) 750 mg PO Q4H PRN PRN Reason: Heartburn Vancomycin HCl 1,250 mg/ (Sodium Chloride) 250 mls @ 166.667 mls/hr IV Q12H [facility] Last Infusion: 04/07/25 07:48 Dose: Infused Documented By: ALICE Lactated Ringer's (Lr) 1,000 mls @ 125 mls/hr IVCONT .Q8H [facility] Last Admin: 04/07/25 04:17 Dose: 125 mls/hr Documented By: MIMI Magnesium Hydroxide (Milk Of Magnesia 30 Ml Oral.Susp) 30 ml PO DAILY PRN PRN Reason: Constipation Melatonin (Melatonin 3 Mg Tablet) 6 mg PO BEDTIME PRN PRN Reason: Insomnia Methadone HCl (Methadone Hcl 20 Mg/2 Ml Oral.Conc) 10 mg PO Q4H PRN PRN Reason: Opiate Withdrawal Last Admin: 04/06/25 17:28 Dose: 10 mg Documented By: IDA Co-signed By: OLGA Nicotine (Nicotine 14 Mg Patch.Td24) 14 mg TRANSDERMA DAILY [facility] Last Admin: 04/06/25 12:06 Dose: 14 mg Documented By: LB Ondansetron HCl (Ondansetron Hcl 4 Mg/2 Ml Vial) 4 mg IVPUSH Q8H PRN PRN Reason: Nausea and Vomiting Pantoprazole Sodium (Pantoprazole Sodium 40 Mg/10 Ml Vial) 40 mg IVPUSH BID@0630,1630 [facility] Last Admin: 04/07/25 05:44 Dose: 40 mg Documented By: MIMI Pharmacy Consult (Consult Rx Vancomycin Dosing) 1 each MISCELLANE DAILY PRN PRN Reason: Consult order Sodium Chloride (0.9 % Sodium Chloride Flush 3 Ml Syringe) 3 ml IVFLUSH QSHIFT [facility] Last Admin: 04/06/25 20:13 Dose: Not Given Documented By: MIMI Non-Admin Reason: IV Running <Brown Paul MD - Last Filed: 04/07/25 13:36> Labs CBC & Chem 7: 04/07/25 06:46 04/07/25 06:46 <Brown Paul MD - Last Filed: 04/07/25 13:36> Labs: Laboratory Results - last 24 hr 04/06/25 04/06/25 04/07/25 05:08 05:55 06:46 Smear Path Review SEE NOTE Estim Creat Clear Calc 113.8 Estimated GFR > 60 Hepatitis A IgM Ab Nonreactive Hep Bs Antigen Negative Hep Bs Antibody GRAYZONE Hep B Core Total Ab Nonreactive Hepatitis C Ab (EIA) Nonreactive HIV 1&2 Ab/P24 Ag 4thGn Nonreactive Blood Type B Positive Antibody Screen NEGATIVE Crossmatch See Detail <Brown Paul MD - Last Filed: 04/07/25 13:36> Microbiology Microbiology Results: Microbiology 04/05/25 20:00 Blood Culture - Preliminary Blood - Venous No growth after 24 hours. 04/05/25 19:59 Blood Culture - Preliminary Blood - Venous No growth after 24 hours. <Brown Paul MD - Last Filed: 04/07/25 13:36> Procedures Date of Service Date of Service: 04/07/25 <Brown Paul MD - Last Filed: 04/07/25 13:36> 04/07/25 <Timur Gonzalez PA-C - Last Filed: 04/07/25 08:29> Progress Note: A&P Assessment and plan (1) Cellulitis of right arm: Status: Acute <Brown Paul MD - Last Filed: 04/07/25 13:36> Assessment and Plan: Persistent severe induration and tenderness on both forearms Plan on I&D this areas under anesthesia along with I and D of the right hand bullae I explained to her the technique of this procedure I reviewed the risks including but not limited to bleeding, infections, pain, as well as the benefits and alternatives I reviewed with her what to expect postoperatively She understands and says she wants to proceed and ?get it done Her partner was with her at bedside <Brown Paul MD - Last Filed: 04/07/25 13:36> (2) Cellulitis of arm, left: Status: Acute <Brown Paul MD - Last Filed: 04/07/25 13:36> Assessment and Plan: 34 yo female with PMH 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 patient continues to have pain in both arms, minimal drainage from wounds. On exam the patient remains lethargic, her arms are very indurated and edemadous. The cellulitis has improved slightly this morning. Patient will have I&D in the OR this afternoon, she is agreeable to this plan. Patients H/H improved this morning 7.1/23.8 from 6.2/20.7. Patient reports her last stable dose of methadone was 100 mg daily, state this was stable for her. Addiction med consult appreciated, from consult note they will reach out to [facility] to confirm last dose. continue IV vanco I&D this afternoon NPO <Timur Gonzalez PA-C - Last Filed: 04/07/25 08:29> Time Spent With Patient Time: Total time managing care of this patient today ____ minutes. <Brown Paul MD - Last Filed: 04/07/25 13:36> Quality Stroke Does the patient have a stroke diagnosis?: No <Brown Paul MD - Last Filed: 04/07/25 13:36> Reason for No Anti-thrombotic by Day Two: Contraindicated <Brown Paul MD - Last Filed: 04/07/25 13:36> VTE Prior VTE?: No <Brown Paul MD - Last Filed: 04/07/25 13:36> VTE Risk Level:: Medical - moderate - high <Brown Paul MD - Last Filed: 04/07/25 13:36> VTE Device Contraindication: N/A - Device Ordered <Brown Paul MD - Last Filed: 04/07/25 13:36> VTE Drug Contraindication: N/A - Med Ordered <Brown Paul MD - Last Filed: 04/07/25 13:36>
--- NOTE | 2025-04-07 09:52 | MHC.CM.PN ---
IMM delivered. Patient reports she is unhoused and sleeping on the street with her boyfriend. Per EMR, she has young children, DCF involvement and children are staying w/ a family member. Functionally independent. Denies use of services or DME. No PCP. [facility] brochure provided. No HCP. CM provided education and offered assistance. Patient declined. +THRIVE, +IVDU. Resource guide provided. Started on Methadone this admission. DP: Offered assist w/ skilled nursing placement and provided skilled nursing list. Patient declined, reporting she prefers to return to the street on foot when dc'd. CM will continue to follow.
--- NOTE | 2025-04-07 11:58 | P.PNADD_ITS ---
Subjective Subjective Date of Service: 04/07/25 Reason For Visit: infected arms Interim History: Patient seen in follow up for OSORIO. Chart reviewed. Received one dose of PRN methadone yesterday late afternoon. Today seen in room 385. She is sleeping, but wakes to voice. Minimal engagement in interview. Does report withdrawal sx, stating her body feels like crap . Reports body aches, pain everywhere and feels weak. Agreeable to restarting methadone. 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 Per RN patient scheduled for OR today Review of Systems Constitutional: Reports as per HPI and Reports no additional constitutional complaints Mental Status Exam Mental Status Exam Level of Consciousness: Awake and Lethargic Patient Behavior: Guarded Affect Description: Flat Speech Pattern: Clear Hallucinations: None Thought Process: Intact Thought Content: positive for Intact Judgement: Fair Diagnostics Vital Signs (24Hr): Vital Signs - 24 hr 04/06/25 13:06 04/06/25 16:01 04/06/25 17:11 Temperature 99 F 98.7 F 98.2 F Pulse Rate 66 60 70 Respiratory Rate 16 16 18 Blood Pressure 114/42 L 102/51 L 95/56 L Pulse Oximetry 99 100 100 Oxygen Delivery Method Room Air Room Air Room Air 04/07/25 03:18 04/07/25 07:11 04/07/25 07:57 Temperature 96.9 F 97.6 F Pulse Rate 63 56 54 Respiratory Rate 18 16 Blood Pressure 97/51 L 91/55 L 96/53 L Pulse Oximetry 99 96 Oxygen Delivery Method Room Air Room Air 04/07/25 11:31 Temperature Pulse Rate 57 Respiratory Rate Blood Pressure 91/52 L Pulse Oximetry Oxygen Delivery Method BMI result Body Mass Index 21.1 Labs 04/07/25 06:46 04/07/25 06:46 Labs: Laboratory Results - last 48 hr 04/05/25 04/05/25 04/06/25 19:02 23:05 04:22 WBC 13.4 H RBC 3.26 L Hgb 7.4 L Hct 24.5 L MCV 75.2 L MCH 22.7 L MCHC 30.2 L RDW 14.8 Plt Count 306 MPV 9.7 Immature Gran % (Auto) 0.3 Neut % (Auto) 76.4 H Lymph % (Auto) 14.4 L [place] % (Auto) 7.2 Eos % (Auto) 1.3 Baso % (Auto) 0.4 Lymph # (Auto) 1.9 [place] # (Auto) 1.0 Eos # (Auto) 0.2 Baso # (Auto) 0.1 Abs Immat Gran (auto) 0.04 H Absolute Neuts (auto) 10.3 H Absolute Nucleated RBC 0.000 Nucleated RBC % (auto) 0.0 Smear Path Review ESR 56 H Sodium 136 Potassium 3.7 Chloride 104 Carbon Dioxide 25 Anion Gap 11 L BUN 16 Creatinine 0.62 Estim Creat Clear Calc 107.5 Estimated GFR > 60 Random Glucose 96 Lactic Acid 0.8 Calcium 9.1 Magnesium 2.0 Iron TIBC % Saturation Unsat Iron Binding Total Bilirubin 0.3 AST 30 ALT 13 Alkaline Phosphatase 69 C-Reactive Protein 7.67 H Total Protein 8.3 H Albumin 4.0 Vitamin B12 Folate Beta HCG, Quant < 2 Urine Color Yellow Urine Appearance Clear Urine pH 7.0 Ur Specific [place] 1.025 Urine Protein Negative Urine Glucose (UA) Negative Urine Ketones Negative Urine Blood Trace H Urine Nitrite Positive H Ur Leukocyte Esterase Trace H Urine RBC 3-5 H Urine WBC 0-5 Ur Squamous Epith Cells 0-2 Urine Bacteria 4+ Hyaline Casts 0-2 Urine Opiates Screen POSITIVE H Ur Buprenorphine Scrn Not Detected Ur Oxycodone Screen Not Detected Urine Methadone Screen Not Detected Urine Fentanyl Screen POSITIVE H Ur Barbiturates Screen Not Detected Ur Phencyclidine Scrn Not Detected Ur Amphetamines Screen Not Detected U Benzodiazepines Scrn POSITIVE H Urine Cocaine Screen POSITIVE H U Marijuana (THC) Screen Not Detected Hepatitis A IgM Ab Hep Bs Antigen Hep Bs Antibody Hep B Core Total Ab Hepatitis C Ab (EIA) HIV 1&2 Ab/P24 Ag 4thGn Blood Type Antibody Screen Crossmatch 04/06/25 04/06/25 04/07/25 05:08 05:55 06:46 WBC 7.9 RBC 2.73 L Hgb 6.2 L* 7.1 L Hct 20.7 L* 23.8 L MCV 75.8 L MCH 22.7 L MCHC 30.0 L RDW 14.8 Plt Count 246 MPV 10.4 Immature Gran % (Auto) 0.3 Neut % (Auto) 63.1 Lymph % (Auto) 23.1 [place] % (Auto) 9.9 Eos % (Auto) 3.2 Baso % (Auto) 0.4 Lymph # (Auto) 1.8 [place] # (Auto) 0.8 Eos # (Auto) 0.3 Baso # (Auto) 0.0 Abs Immat Gran (auto) 0.02 Absolute Neuts (auto) 5.0 Absolute Nucleated RBC 0.000 Nucleated RBC % (auto) 0.0 Smear Path Review SEE NOTE ESR Sodium 140 Potassium 3.4 Chloride 111 H Carbon Dioxide 26 Anion Gap 6 L BUN 8 L Creatinine 0.51 0.59 Estim Creat Clear Calc 130.6 113.8 Estimated GFR > 60 > 60 Random Glucose 84 Lactic Acid Calcium 7.5 L D Magnesium Iron 25 L TIBC 239 % Saturation 10 L Unsat Iron Binding 214 Total Bilirubin AST ALT Alkaline Phosphatase C-Reactive Protein Total Protein Albumin Vitamin B12 381 Folate 9.3 Beta HCG, Quant Urine Color Urine Appearance Urine pH Ur Specific [place] Urine Protein Urine Glucose (UA) Urine Ketones Urine Blood Urine Nitrite Ur Leukocyte Esterase Urine RBC Urine WBC Ur Squamous Epith Cells Urine Bacteria Hyaline Casts Urine Opiates Screen Ur Buprenorphine Scrn Ur Oxycodone Screen Urine Methadone Screen Urine Fentanyl Screen Ur Barbiturates Screen Ur Phencyclidine Scrn Ur Amphetamines Screen U Benzodiazepines Scrn Urine Cocaine Screen U Marijuana (THC) Screen Hepatitis A IgM Ab Nonreactive Hep Bs Antigen Negative Hep Bs Antibody GRAYZONE Hep B Core Total Ab Nonreactive Hepatitis C Ab (EIA) Nonreactive HIV 1&2 Ab/P24 Ag 4thGn Nonreactive Blood Type B Positive Antibody Screen NEGATIVE Crossmatch See Detail Medications Medications Current Medications Acetaminophen (Acetaminophen 325 Mg Tablet) 650 mg PO Q6H PRN PRN Reason: Pain, Mild 1-3,fever,headache Last Admin: 04/06/25 22:55 Dose: 650 mg Albuterol/Ipratropium (Albuterol/Iprat 2.5/0.5mg 3 Ml Ampul.Neb) 3 ml INHALE Q4H PRN PRN Reason: Shortness of Breath/Wheezing Calcium Carbonate (Calcium Carbonate 750 Mg Tab.Chew) 750 mg PO Q4H PRN PRN Reason: Heartburn Heparin Sodium (Porcine) 50 (units/ Sodium Chloride 5 ml) 0 units IVFLUSH QSHIFT [facility] Vancomycin HCl 1,250 mg/ (Sodium Chloride) 250 mls @ 166.667 mls/hr IV Q12H [facility] Last Infusion: 04/07/25 07:48 Dose: Infused Lactated Ringer's (Lr) 1,000 mls @ 125 mls/hr IVCONT .Q8H [facility] Last Admin: 04/07/25 04:17 Dose: 125 mls/hr Magnesium Hydroxide (Milk Of Magnesia 30 Ml Oral.Susp) 30 ml PO DAILY PRN PRN Reason: Constipation Melatonin (Melatonin 3 Mg Tablet) 6 mg PO BEDTIME PRN PRN Reason: Insomnia Methadone HCl (Methadone Hcl 20 Mg/2 Ml Oral.Conc) 10 mg PO Q4H PRN PRN Reason: Opiate Withdrawal Last Admin: 04/06/25 17:28 Dose: 10 mg Nicotine (Nicotine 14 Mg Patch.Td24) 14 mg TRANSDERMA DAILY [facility] Last Admin: 04/07/25 08:00 Dose: Not Given Ondansetron HCl (Ondansetron Hcl 4 Mg/2 Ml Vial) 4 mg IVPUSH Q8H PRN PRN Reason: Nausea and Vomiting Pantoprazole Sodium (Pantoprazole Sodium 40 Mg/10 Ml Vial) 40 mg IVPUSH BID@0630,1630 [facility] Last Admin: 04/07/25 05:44 Dose: 40 mg Pharmacy Consult (Consult Rx Vancomycin Dosing) 1 each MISCELLANE DAILY PRN PRN Reason: Consult order Sodium Chloride (0.9 % Sodium Chloride Flush 3 Ml Syringe) 3 ml IVFLUSH QSHIFT [facility] Last Admin: 04/07/25 08:00 Dose: Not Given Allergies Allergies Allergy/AdvReac Type Severity Reaction Status Date / Time amoxicillin (AMOXICILLIN) Allergy Unknown ANAPHYLAXIS Verified 04/05/25 17:53 Penicillins (PENICILLINS) Allergy Unknown ANAPHYLAXIS Verified 04/05/25 17:53 escitalopram (From Lexapro) Allergy Facial Verified 04/05/25 17:53 Swelling ANTIDEPRESSANT Allergy Severe PT UNABLE Uncoded 04/05/25 17:53 TO RECALL NAME OF MED-FACIAL SWELLING Assessment & Plan Assessment & Plan (1) Opioid use disorder: Status: Acute Code(s): F11.90 - Opioid use, unspecified, uncomplicated Assessment and Plan: * methadone 20mg X1 and will continue titrating dose throughout the day as tolerated (BP) * based on previous dose of 120mg 2 months ago, dose titration can be more rapid * will continue to follow Total time managing care of this patient today __35__ minutes.
--- NOTE | 2025-04-07 12:15 | PC.NURSE ---
Patient drowsy,BP 91/52 pulse 52,notified TARPER,advised by anesthesia not to administer Methadone dose ordered,Marisol Rawls made aware,patient transported to OR by OR staff
--- NOTE | 2025-04-07 12:41 | PC.NURSE ---
Patient not wanting to answer many questions. Documentation reflects only questions answered. Patient stating, I want this done. I'm sick of waiting.
--- NOTE | 2025-04-07 12:59 | HO.ANESPROP2 ---
[facility] Active Problems Active Problems: All Active Problems Opioid use disorder (Acute) Tobacco dependence (Acute) Depression (Acute) Dental caries (Acute) Anemia (Acute) Polysubstance abuse (Acute) Drug abuse, IV (Acute) Cellulitis of right arm (Acute) Cellulitis of arm, left (Acute) Past Medical History Medical History (Updated 04/06/25 @ 15:56 by Sarah Rawls CNP) Tobacco dependence Depression Dental caries Drug abuse, IV Anemia Polysubstance abuse Functional capacity: independent ambulation Family History Family history of problems with anesthesia: No Surgical History History of Problems with Anesthesia: No Social History Social History (Updated 04/06/25 @ 03:13 by CIERRA Benoit-) Household Members: None Housing: Homeless Are you a primary insurance healthcare representative to a significant other at home: No Do you presently have visiting nurse or other home services: No Unable to assess alcohol history related to: Unable to respond Patient Tobacco Use Status: Current everyday Tobacco user Tobacco use type: Cigarette Cigarette Packs Per Day: 1 Cigarettes Per Day: 20.0 Second Hand Smoke Exposure: No Substance Use Type: Crack/Cocaine and Heroin service: No Meds Allergies Allergy/AdvReac Type Severity Reaction Status Date / Time amoxicillin (AMOXICILLIN) Allergy Unknown ANAPHYLAXIS Verified 04/05/25 17:53 Penicillins (PENICILLINS) Allergy Unknown ANAPHYLAXIS Verified 04/05/25 17:53 escitalopram (From Lexapro) Allergy Facial Verified 04/05/25 17:53 Swelling ANTIDEPRESSANT Allergy Severe PT UNABLE Uncoded 04/05/25 17:53 TO RECALL NAME OF MED-FACIAL SWELLING Active Medications: Current Medications Acetaminophen (Acetaminophen 325 Mg Tablet) 650 mg PO Q6H PRN PRN Reason: Pain, Mild 1-3,fever,headache Last Admin: 04/06/25 22:55 Dose: 650 mg Albuterol/Ipratropium (Albuterol/Iprat 2.5/0.5mg 3 Ml Ampul.Neb) 3 ml INHALE Q4H PRN PRN Reason: Shortness of Breath/Wheezing Calcium Carbonate (Calcium Carbonate 750 Mg Tab.Chew) 750 mg PO Q4H PRN PRN Reason: Heartburn Heparin Sodium (Porcine) 50 (units/ Sodium Chloride 5 ml) 0 units IVFLUSH QSHIFT [facility] Vancomycin HCl 1,250 mg/ (Sodium Chloride) 250 mls @ 166.667 mls/hr IV Q12H [facility] Last Infusion: 04/07/25 07:48 Dose: Infused Lactated Ringer's (Lr) 1,000 mls @ 125 mls/hr IVCONT .Q8H [facility] Last Infusion: 04/07/25 12:22 Dose: Infused Magnesium Hydroxide (Milk Of Magnesia 30 Ml Oral.Susp) 30 ml PO DAILY PRN PRN Reason: Constipation Melatonin (Melatonin 3 Mg Tablet) 6 mg PO BEDTIME PRN PRN Reason: Insomnia Methadone HCl (Methadone Hcl 20 Mg/2 Ml Oral.Conc) 10 mg PO Q4H PRN PRN Reason: Opiate Withdrawal Last Admin: 04/06/25 17:28 Dose: 10 mg Nicotine (Nicotine 14 Mg Patch.Td24) 14 mg TRANSDERMA DAILY [facility] Last Admin: 04/07/25 08:00 Dose: Not Given Ondansetron HCl (Ondansetron Hcl 4 Mg/2 Ml Vial) 4 mg IVPUSH Q8H PRN PRN Reason: Nausea and Vomiting Pantoprazole Sodium (Pantoprazole Sodium 40 Mg/10 Ml Vial) 40 mg IVPUSH BID@0630,1630 [facility] Last Admin: 04/07/25 05:44 Dose: 40 mg Pharmacy Consult (Consult Rx Vancomycin Dosing) 1 each MISCELLANE DAILY PRN PRN Reason: Consult order Sodium Chloride (0.9 % Sodium Chloride Flush 3 Ml Syringe) 3 ml IVFLUSH QSHIFT [facility] Last Admin: 04/07/25 08:00 Dose: Not Given Home Medications ?Medication ?Instructions ?Recorded ?Confirmed ?Last Taken ?Type No Known Home Meds 04/06/25 04/06/25 Unknown History Exam Height,Weight and Vital Signs: Height 5 ft 4 in Weight 55.7 kg Last Vital Signs Temp 98.1 F 04/07/25 12:20 Pulse 50 04/07/25 12:20 Resp 18 04/07/25 12:20 BP 114/54 L 04/07/25 12:34 Pulse Ox 99 04/07/25 12:20 O2 Del Method Room Air 04/07/25 12:20 Pertinent Lab Results Pertinent Lab Results: Laboratory Tests 04/05/25 04/05/25 04/06/25 19:02 23:05 04:22 WBC 13.4 H RBC 3.26 L Hgb 7.4 L Hct 24.5 L MCV 75.2 L MCH 22.7 L MCHC 30.2 L RDW 14.8 Plt Count 306 MPV 9.7 Immature Gran % (Auto) 0.3 Neut % (Auto) 76.4 H Lymph % (Auto) 14.4 L Scott % (Auto) 7.2 Eos % (Auto) 1.3 Baso % (Auto) 0.4 Lymph # (Auto) 1.9 Scott # (Auto) 1.0 Eos # (Auto) 0.2 Baso # (Auto) 0.1 Abs Immat Gran (auto) 0.04 H Absolute Neuts (auto) 10.3 H Absolute Nucleated RBC 0.000 Nucleated RBC % (auto) 0.0 Smear Path Review ESR 56 H Sodium 136 Potassium 3.7 Chloride 104 Carbon Dioxide 25 Anion Gap 11 L BUN 16 Creatinine 0.62 Estim Creat Clear Calc 107.5 Estimated GFR > 60 Random Glucose 96 Lactic Acid 0.8 Calcium 9.1 Magnesium 2.0 Iron TIBC % Saturation Unsat Iron Binding Total Bilirubin 0.3 AST 30 ALT 13 Alkaline Phosphatase 69 C-Reactive Protein 7.67 H Total Protein 8.3 H Albumin 4.0 Vitamin B12 Folate Beta HCG, Quant < 2 Urine Color Yellow Urine Appearance Clear Urine pH 7.0 Ur Specific [place] 1.025 Urine Protein Negative Urine Glucose (UA) Negative Urine Ketones Negative Urine Blood Trace H Urine Nitrite Positive H Ur Leukocyte Esterase Trace H Urine RBC 3-5 H Urine WBC 0-5 Ur Squamous Epith Cells 0-2 Urine Bacteria 4+ Hyaline Casts 0-2 Urine Opiates Screen POSITIVE H Ur Buprenorphine Scrn Not Detected Ur Oxycodone Screen Not Detected Urine Methadone Screen Not Detected Urine Fentanyl Screen POSITIVE H Ur Barbiturates Screen Not Detected Ur Phencyclidine Scrn Not Detected Ur Amphetamines Screen Not Detected U Benzodiazepines Scrn POSITIVE H Urine Cocaine Screen POSITIVE H U Marijuana (THC) Screen Not Detected Hepatitis A IgM Ab Hep Bs Antigen Hep Bs Antibody Hep B Core Total Ab Hepatitis C Ab (EIA) HIV 1&2 Ab/P24 Ag 4thGn Blood Type Antibody Screen Crossmatch 04/06/25 04/06/25 04/07/25 05:08 05:55 06:46 WBC 7.9 RBC 2.73 L Hgb 6.2 L* 7.1 L Hct 20.7 L* 23.8 L MCV 75.8 L MCH 22.7 L MCHC 30.0 L RDW 14.8 Plt Count 246 MPV 10.4 Immature Gran % (Auto) 0.3 Neut % (Auto) 63.1 Lymph % (Auto) 23.1 Scott % (Auto) 9.9 Eos % (Auto) 3.2 Baso % (Auto) 0.4 Lymph # (Auto) 1.8 Scott # (Auto) 0.8 Eos # (Auto) 0.3 Baso # (Auto) 0.0 Abs Immat Gran (auto) 0.02 Absolute Neuts (auto) 5.0 Absolute Nucleated RBC 0.000 Nucleated RBC % (auto) 0.0 Smear Path Review SEE NOTE ESR Sodium 140 Potassium 3.4 Chloride 111 H Carbon Dioxide 26 Anion Gap 6 L BUN 8 L Creatinine 0.51 0.59 Estim Creat Clear Calc 130.6 113.8 Estimated GFR > 60 > 60 Random Glucose 84 Lactic Acid Calcium 7.5 L D Magnesium Iron 25 L TIBC 239 % Saturation 10 L Unsat Iron Binding 214 Total Bilirubin AST ALT Alkaline Phosphatase C-Reactive Protein Total Protein Albumin Vitamin B12 381 Folate 9.3 Beta HCG, Quant Urine Color Urine Appearance Urine pH Ur Specific [place] Urine Protein Urine Glucose (UA) Urine Ketones Urine Blood Urine Nitrite Ur Leukocyte Esterase Urine RBC Urine WBC Ur Squamous Epith Cells Urine Bacteria Hyaline Casts Urine Opiates Screen Ur Buprenorphine Scrn Ur Oxycodone Screen Urine Methadone Screen Urine Fentanyl Screen Ur Barbiturates Screen Ur Phencyclidine Scrn Ur Amphetamines Screen U Benzodiazepines Scrn Urine Cocaine Screen U Marijuana (THC) Screen Hepatitis A IgM Ab Nonreactive Hep Bs Antigen Negative Hep Bs Antibody GRAYZONE Hep B Core Total Ab Nonreactive Hepatitis C Ab (EIA) Nonreactive HIV 1&2 Ab/P24 Ag 4thGn Nonreactive Blood Type B Positive Antibody Screen NEGATIVE Crossmatch See Detail Airway Mallampati Class: II (poor dentition, missing multiple teeth, denies anything loose) TM Dist: >3cm Neck ROM: Full Heart: rrr Lungs: cta Assessment and Plan Assessment Anesthesia Assessment: Anesthesia Plan Discussed and Chart Reviewed Final Anesthetic Review Family History of Problems with Anesthesia: No History of Problems with Anesthesia: No NPO: Yes ASA Class: III Final Preanesthetic Review: No Changes in Pt Med Stat, Meds/Allgs Chart Reviewed and Consent Obtained/Reviewed Patient Risk: Intermediate Procedure Risk: Low Anesthetic Plan Anesthetic Plan: GA Disposition: Standard PACU
--- NOTE | 2025-04-07 13:36 | P.OP_ITS ---
Operative Note Operative Note Date of Service: 04/07/25 Narrative: Preop diagnosis: Cellulitis and abscesses, left and right forearm, right hand Postop diagnosis: The same Procedure: Incision and drainage, sharp excisional debridement of abscess sites on the left and right forearm as well as the right hand Surgeon: Brown Paul MD Family Resource Coordinator: JAMARCUS Gonzalez The patient is a 34 year old female with a long history of IV drug abuse,, admitted because of cellulitis and abscesses on both left and right forearm as well as the right hand from IV access for her drugs. She understood the technique of I and D in the operating room under anesthesia and she was aware of the risks, benefits, and alternatives She was brought to the operating room. She was placed supine under general anesthesia via laryngeal mask airway. All areas with the induration and abscess were prepped and draped. There were note of wide area of induration on the right forearm with multiple small draining areas. I proceeded to open up this area of induration with a blade 11. I connected this small draining areas together drained pus was expressed. Cultures were taken I sharply debrided some of this areas because of non viable skin and subcutaneous tissue using scissors. The area debrided was about 3 x 4 cm. I applied light packing using iodoform and wrapped the area with Kerlix roll. The same procedure was duplicated on the left forearm. The area on the left were much smaller, about 2 x 3 cm. Again, a blade 11 was used to open up the indurated areas to drain abscess pockets. No packing was used as the areas were much more superficial. Dressings were applied in the forearm was wrapped with a Kerlix roll as well There was note of 2 abscesses each about 1 mm in size on the posterior aspect of the right hand. This were opened up with a blade 11 and abscesses were drained as well. Dressings were applied in the hand was also wrapped in a Demian roll. The procedure was then completed. The patient tolerated the procedure well. There were no immediate complicati ons. She was extubated with difficulty in the operating room transferred to the recovery room with stable vital signs. Estimated blood loss was less than 25 cc.
[2025-04-07] MEDS: Heparin Sodium,Porcine Flush 50 UNITS, 0.9 % Sodium Chloride Flush 5 ML IVFLUSH (14:36)
--- NOTE | 2025-04-07 15:54 | MHC.RECOVRN ---
TW made several attempts to meet with pt to discuss and offer support & resources regarding OSORIO. On each attempt pt was sleeping in bed but would not respond to TW. Respirations were even and unlabored and pt did not appear to be in acute distress. Will attempt to meet with pt in the morning. TW is available for any questions or concerns should they arise
--- NOTE | 2025-04-07 17:43 | HO.PM.IMPN ---
Subjective Subjective Date of Service: 04/07/25 Interval History: No new complaints today. Drowsy by bedside; reporting pain in bilateral arms is about the same as before. Eating and drinking. Stooling and urinating. Review of Systems Review of Systems: Yes all other systems are reviewed and are negative Physical Exam Exam: Exam: General: A&O x3, oriented to time place person and siutaion, comfortable, no pain Cardiac: S1, S2 auscultated with no S3/4, No MRG noted. Well perfused. No splinter hemorrhages. Respiratory: Normal breath sounds auscultated throughout all lung zones, without wheezing, rales. Normal rate. GI/ : No abdominal pain on palpation, no masses or distentions. MSK: bilateral arm swelling noted with multiple puncture wounds; some pustular. Neurological: Normal neurological examination on overview, without obvious CN II-XII abnormalities. Vital Signs: Vital Signs: Last Vital Signs Temp 97.0 F 04/07/25 14:33 Pulse 57 04/07/25 14:41 Resp 14 04/07/25 14:33 BP 130/61 04/07/25 14:33 Pulse Ox 100 04/07/25 14:33 O2 Del Method Room Air 04/07/25 14:33 O2 Flow Rate 6 04/07/25 13:41 BMI result Body Mass Index 21.1 Eyes: General: appearance normal, both eyes and all related structures EOM: EOMs intact bilaterally Objective Data Active Medications Acetaminophen (Acetaminophen 325 Mg Tablet) 650 mg PO Q6H PRN PRN Reason: Pain, Mild 1-3,fever,headache Last Admin: 04/06/25 22:55 Dose: 650 mg Documented By: MIMI Albuterol/Ipratropium (Albuterol/Iprat 2.5/0.5mg 3 Ml Ampul.Neb) 3 ml INHALE Q4H PRN PRN Reason: Shortness of Breath/Wheezing Calcium Carbonate (Calcium Carbonate 750 Mg Tab.Chew) 750 mg PO Q4H PRN PRN Reason: Heartburn Heparin Sodium (Porcine) 50 (units/ Sodium Chloride 5 ml) 0 units IVFLUSH QSHIFT ABBY Last Admin: 04/07/25 14:36 Dose: 50 unit Documented By: ALICE Lactated Ringer's (Lr) 1,000 mls @ 125 mls/hr IVCONT .Q8H [facility] Last Admin: 04/07/25 14:36 Dose: 125 mls/hr Documented By: ALICE Vancomycin HCl 1,250 mg/ (Sodium Chloride) 250 mls @ 166.667 mls/hr IV Q8H [facility] Magnesium Hydroxide (Milk Of Magnesia 30 Ml Oral.Susp) 30 ml PO DAILY PRN PRN Reason: Constipation Melatonin (Melatonin 3 Mg Tablet) 6 mg PO BEDTIME PRN PRN Reason: Insomnia Methadone HCl (Methadone Hcl 20 Mg/2 Ml Oral.Conc) 10 mg PO Q4H PRN PRN Reason: Opiate Withdrawal Last Admin: 04/06/25 17:28 Dose: 10 mg Documented By: IDA Co-signed By: OLGA Morphine Sulfate (Morphine Sulfate 4 Mg/Ml Cartridge) 4 mg IVPUSH Q4H PRN; Protocol PRN Reason: Pain, Severe (Pain Scale 7-10) Nicotine (Nicotine 14 Mg Patch.Td24) 14 mg TRANSDERMA DAILY [facility] Last Admin: 04/07/25 08:00 Dose: Not Given Documented By: ALICE Non-Admin Reason: Patient Refused Ondansetron HCl (Ondansetron Hcl 4 Mg/2 Ml Vial) 4 mg IVPUSH Q8H PRN PRN Reason: Nausea and Vomiting Oxycodone HCl (Oxycodone Hcl Immed Release 5 Mg Tablet) 5 mg PO Q4H PRN PRN Reason: Pain, Moderate(Pain Scale 4-6) Pantoprazole Sodium (Pantoprazole Sodium 40 Mg/10 Ml Vial) 40 mg IVPUSH BID@0630,1630 [facility] Last Admin: 04/07/25 14:39 Dose: 40 mg Documented By: ALICE Pharmacy Consult (Consult Rx Vancomycin Dosing) 1 each MISCELLANE DAILY PRN PRN Reason: Consult order Sodium Chloride (0.9 % Sodium Chloride Flush 3 Ml Syringe) 3 ml IVFLUSH QSHIFT [facility] Last Admin: 04/07/25 14:38 Dose: Not Given Documented By: ALICE Non-Admin Reason: pt has a TLC Labs 04/07/25 06:46 04/07/25 06:46 Labs: Laboratory Results - last 24 hr 04/07/25 04/07/25 06:46 16:03 Estim Creat Clear Calc 113.8 Estimated GFR > 60 Random Vancomycin 4.2 L Microbiology Microbiology Results: Microbiology 04/07/25 13:20 Gram Stain - Final Forearm Right 04/05/25 20:00 Blood Culture - Preliminary Blood - Venous No growth after 24 hours. 04/05/25 19:59 Blood Culture - Preliminary Blood - Venous No growth after 24 hours. Assessment and Plan (1) Cellulitis of arm, left: Status: Acute Assessment and Plan: BUE cellulitis from IVDA (heroin and cocaine) Pt started on Vancomcyin in ED, Pharmacy consulted IVF provided in ED CT neg for OM, soft tissue gas General surgery consulted, ? need for I/D of affected areas Central line placed in ED: R femoral due to poor access in BUE's Follow blood cultures LA 0.8, noted leukocytosis with elevated ESR and CRP HIV and hepatitis testing ordered Pt does not meet criteria for sepsis at this time Echo ordered to rule out endocarditis (2) Cellulitis of right arm: Status: Acute Assessment and Plan: BUE cellulitis from IVDA (heroin and cocaine) Pt started on Vancomcyin in ED, Pharmacy consulted IVF provided in ED CT neg for OM, soft tissue gas General surgery consulted, ? need for I/D of affected areas Central line placed in ED: R femoral due to poor access in BUE's Follow blood cultures LA 0.8, noted leukocytosis with elevated ESR and CRP HIV and hepatitis testing ordered Pt does not meet criteria for sepsis at this time Echo ordered to rule out endocarditis (3) Anemia: Status: Acute Assessment and Plan: Anemic on evaluation. Hgb 6.2 s/p transfusion. Currently stable at 7.1 B12, folic acid unremarkable. Iron level low, TIBC borderline low, Iron saturation 10%. AMEENA noted. Pellet Post Inspector consulted. Probably element of anemia of chronic diease superimposed. (4) Homelessness: Status: Acute Assessment and Plan: Case management, [place], policy manager currently consulting (5) Drug abuse, IV: Status: Acute Assessment and Plan: PSUD history of cocaine and heroin use. PLAN - COWS monitoring - CIWA monitoring (for cocaine use) - Analgesia prescribed - Addiction medicine consulted (6) Polysubstance abuse: Status: Acute Assessment and Plan: Addictions consulted - pt was on methadone via [facility] abiout 2-3 months ago PSUD history of cocaine and heroin use. PLAN - COWS monitoring - CIWA monitoring (for cocaine use) - Analgesia prescribed - Addiction medicine consulted Total time managing care of this patient today: 35 minutes. Quality Stroke Does the patient have a stroke diagnosis?: No Reason for No Anti-thrombotic by Day Two: Contraindicated VTE Prior VTE?: No VTE Risk Level:: Medical - moderate - high VTE Device Contraindication: N/A - Device Ordered VTE Drug Contraindication: N/A - Med Ordered
[2025-04-07] MEDS: methADONE HCl 20 MG/2 ML ORAL.CONC 10 MG PO (18:01)
[2025-04-07] MEDS: oxyCODONE HCl Immed Release 5 MG TABLET PO (19:40)
[2025-04-07 20:02] LABS: OBS Int Ctl Valid YES; OBS1 NEGATIVE (NEGATIVE)
[2025-04-07 20:03] LABS: OBS Lot 0124
[2025-04-08] VITALS (8 sets, daily range): BP systolic 97–111; BP diastolic 50–59; PULSE 55–69; RESP 14–18; TEMP 36–36.8; O2SAT 96–99
[2025-04-08] MEDS: Lactated Ringers 1,000 ML 125 ML IVCONT (00:23)
[2025-04-08] MEDS: Heparin Sodium,Porcine Flush 50 UNITS, 0.9 % Sodium Chloride Flush 5 ML IVFLUSH ×3 (00:48→15:56)
[2025-04-08] MEDS: methADONE HCl 20 MG/2 ML ORAL.CONC 10 MG PO ×2 (01:46→07:42)
--- NOTE | 2025-04-08 06:43 | P.PNGS_ITS ---
Subjective Subjective Date of Service: 04/08/25 <July Arteaga - Last Filed: 04/08/25 07:17> 04/08/25 <Timur Gonzalez PA-C - Last Filed: 04/08/25 08:36> 04/08/25 <Brown Paul MD - Last Filed: 04/08/25 12:54> Interval history: The patient is a 34-year-old female POD1 s/p incision and drainage, sharp excisional debridement of abscess sites on the left and right forearm as well as the right hand secondary to IVDU. Upon entering the room she appears to be fatigued but resting comfortably. She denies fever, chills, nausea, vomiting. She has been able to ambulate without assistance. She has not been using spirometry. She rates her pain b/l as 6/10. The patient is inquiring about getting her methadone. Her last dose of 10 mg was given at 01:46. <July Arteaga Last Filed: 04/08/25 07:17> Physical Exam 2 Vital Signs: Vital Signs: Last Vital Signs Temp 96.8 F 04/08/25 03:31 Pulse 69 04/08/25 03:31 Resp 18 04/08/25 03:31 BP 97/50 L 04/08/25 03:31 Pulse Ox 98 04/08/25 03:31 O2 Del Method Room Air 04/08/25 03:31 O2 Flow Rate 6 04/07/25 13:41 BMI result Body Mass Index 21.1 <July Arteaga Last Filed: 04/08/25 07:17> Const: General: comfortable, no acute distress, awake and tired appearing <July Soto Last Filed: 04/08/25 07:17> Orientation/consciousness: patient oriented x3 <July Soto Last Filed: 04/08/25 07:17> Resp: Effort & Inspection: normal respiratory effort and able to speak in complete sentences <July Soto Filed: 04/08/25 07:17> Cardio: Rate: regular rate <July Soto Filed: 04/08/25 07:17> Rhythm: regular rhythm <July Soto Last Filed: 04/08/25 07:17> Heart sounds: S1 normal heart sound present and S2 normal heart sound present <July Chandler - Last Filed: 04/08/25 07:17> Neuro: General: patient oriented x3 <July Arteaga - Last Filed: 04/08/25 07:17> Extrem: Other: Dressings of b/l forearms and right hand in place with some purulent drainage noted on the right forearm external dressings. Skin was warm to the touch. No visible erythema surround the dressing sites. <July Arteaga - Last Filed: 04/08/25 07:17> Other: Dressings of b/l forearms and right hand in place with some purulent drainage noted on the right forearm external dressings. Skin was warm to the touch. No visible erythema surround the dressing sites. Dressings in place, some betadine staining on the external dressings. Improvement in swelling bilalaterally <Timur Gonzalez PA-C - Last Filed: 04/08/25 08:36> Objective Data Active Medications Acetaminophen (Acetaminophen 325 Mg Tablet) 650 mg PO Q6H PRN PRN Reason: Pain, Mild 1-3,fever,headache Last Admin: 04/06/25 22:55 Dose: 650 mg Documented By: MIMI Albuterol/Ipratropium (Albuterol/Iprat 2.5/0.5mg 3 Ml Ampul.Neb) 3 ml INHALE Q4H PRN PRN Reason: Shortness of Breath/Wheezing Calcium Carbonate (Calcium Carbonate 750 Mg Tab.Chew) 750 mg PO Q4H PRN PRN Reason: Heartburn Heparin Sodium (Porcine) 50 (units/ Sodium Chloride 5 ml) 0 units IVFLUSH QSHIFT [facility] Last Admin: 04/08/25 00:48 Dose: 50 unit Documented By: CARLOS Lactated Ringer's (Lr) 1,000 mls @ 125 mls/hr IVCONT .Q8H [facility] Last Infusion: 04/08/25 02:27 Dose: 125 mls/hr Documented By: CARLOS Vancomycin HCl 1,250 mg/ (Sodium Chloride) 250 mls @ 166.667 mls/hr IV Q8H [facility] Last Infusion: 04/08/25 02:27 Dose: Infused Documented By: CARLOS Magnesium Hydroxide (Milk Of Magnesia 30 Ml Oral.Susp) 30 ml PO DAILY PRN PRN Reason: Constipation Melatonin (Melatonin 3 Mg Tablet) 6 mg PO BEDTIME PRN PRN Reason: Insomnia Methadone HCl (Methadone Hcl 20 Mg/2 Ml Oral.Conc) 10 mg PO Q4H PRN PRN Reason: Opiate Withdrawal Last Admin: 04/08/25 01:46 Dose: 10 mg Documented By: ISSA Co-signed By: MIMI Morphine Sulfate (Morphine Sulfate 4 Mg/Ml Cartridge) 4 mg IVPUSH Q4H PRN; Protocol PRN Reason: Pain, Severe (Pain Scale 7-10) Nicotine (Nicotine 14 Mg Patch.Td24) 14 mg TRANSDERMA DAILY [facility] Last Admin: 04/07/25 08:00 Dose: Not Given Documented By: ALICE Non-Admin Reason: Patient Refused Ondansetron HCl (Ondansetron Hcl 4 Mg/2 Ml Vial) 4 mg IVPUSH Q8H PRN PRN Reason: Nausea and Vomiting Oxycodone HCl (Oxycodone Hcl Immed Release 5 Mg Tablet) 5 mg PO Q4H PRN PRN Reason: Pain, Moderate(Pain Scale 4-6) Last Admin: 04/07/25 19:40 Dose: 5 mg Documented By: CARLOS Pantoprazole Sodium (Pantoprazole Sodium 40 Mg/10 Ml Vial) 40 mg IVPUSH BID@0630,1630 [facility] Last Admin: 04/08/25 06:09 Dose: 40 mg Documented By: CARLOS Pharmacy Consult (Consult Rx Vancomycin Dosing) 1 each MISCELLANE DAILY PRN PRN Reason: Consult order Sodium Chloride (0.9 % Sodium Chloride Flush 3 Ml Syringe) 3 ml IVFLUSH QSHIFT [facility] Last Admin: 04/08/25 00:26 Dose: Not Given Documented By: CARLOS Non-Admin Reason: IV Running <July Arteaga - Last Filed: 04/08/25 07:17> Labs CBC & Chem 7: 04/08/25 07:01 04/08/25 07:01 <July Arteaga - Last Filed: 04/08/25 07:17> Labs: Laboratory Results - last 24 hr 04/07/25 04/07/25 04/07/25 06:46 16:03 19:20 Estim Creat Clear Calc 113.8 Estimated GFR > 60 Stool Occult Blood NEGATIVE Random Vancomycin 4.2 L <July Arteaga - Last Filed: 04/08/25 07:17> Microbiology Microbiology Results: Microbiology 04/05/25 20:00 Blood Culture - Preliminary Blood - Venous No growth after 48 hours. 04/05/25 19:59 Blood Culture - Preliminary Blood - Venous No growth after 48 hours. 04/07/25 13:20 Gram Stain - Final Forearm Right <July Arteaga - Last Filed: 04/08/25 07:17> Procedures Date of Service Date of Service: 04/08/25 <July Arteaga - Last Filed: 04/08/25 07:17> 04/08/25 <Timur Gonzalez PA-C - Last Filed: 04/08/25 08:36> 04/08/25 <Brown Paul MD - Last Filed: 04/08/25 12:54> Progress Note: A&P Assessment and plan (1) Cellulitis of arm, left: Status: Acute <July Arteaga - Last Filed: 04/08/25 07:17> (2) Cellulitis of right arm: Status: Acute <July Arteaga - Last Filed: 04/08/25 07:17> (3) Opioid use disorder: Status: Acute <July Arteaga - Last Filed: 04/08/25 07:17> Assessment and Plan: The patient is a 34-year-old female POD1 s/p incision and drainage, sharp excisional debridement of abscess sites on the left and right forearm as well as the right hand secondary to IVDU. She is currently homeless. She appears to be doing well and is tolerating antibiotics. Her pain is 6/10 and she is requesting methadone. Her last dose of 10 mg around 01:46 this morning. Her blood pressure was 97/50 this morning, she is still receiving IV fluids. No signs of systemic infection. Preliminary blood cultures are negative, wound culture from right forearm still pending but preliminary showed staph. We will plan to continue with wound care and antibiotics today and will continue to provide support and education about keeping her incisions clean and dry. The addiction medicine team is managing her methadone dosing. Continue to ambulate as tolerated Encouraged spirometry use Pain control <July Arteaga - Last Filed: 04/08/25 07:17> The patient is a 34-year-old female POD1 s/p incision and drainage, sharp excisional debridement of abscess sites on the left and right forearm as well as the right hand secondary to IVDU. She is currently homeless. She appears to be doing well and is tolerating antibiotics. Her pain is 6/10 and she is requesting methadone. Her last dose of 10 mg around 01:46 this morning. Her blood pressure was 97/50 this morning, she is still receiving IV fluids. No signs of systemic infection. Preliminary blood cultures are negative, wound culture from right forearm still pending but preliminary showed gram positive cocci. We will plan to continue with wound care and antibiotics today and will continue to provide support and education about keeping her incisions clean and dry. The addiction medicine team is managing her methadone dosing. Continue to ambulate as tolerated Encouraged spirometry use Pain control Patient seen and evaluated independently, i agree with the above assessment and plan. Pain improving from admission. On exam the arms appear less swollen, less sensitive to touch. Will change dressings this afternoon. continue IV vanco culture pending daily dressing changes addiction med consult appreciate, continue to titrate methadone per recommendations to therapeutic dose patient may need <Timur Gonzalez PA-C - Last Filed: 04/08/25 08:36> Time Spent With Patient Time: Total time managing care of this patient today ____ minutes. <July Soto Last Filed: 04/08/25 07:17> Quality Stroke Does the patient have a stroke diagnosis?: No <July Lemus Filed: 04/08/25 07:17> Reason for No Anti-thrombotic by Day Two: Contraindicated <uJly Soto Filed: 04/08/25 07:17> VTE Prior VTE?: No <July Lemus Filed: 04/08/25 07:17> VTE Risk Level:: Medical - moderate - high <July Soto Filed: 04/08/25 07:17> VTE Device Contraindication: N/A - Device Ordered <July Lemus Filed: 04/08/25 07:17> VTE Drug Contraindication: N/A - Med Ordered <July Lemus Filed: 04/08/25 07:17>
[2025-04-08 07:11] LABS: MANUAL DIFF FLAG NO
[2025-04-08 07:17] LABS: Hematocrit 24.1 % (37.0-47.0); Hemoglobin 7.3 g/dl (12.0-16.0); Imm Gran Abs Auto 0.02 X10*3/uL (0.00-0.03); Imm Gran Pct Auto 0.3 % (0.0-0.4); Lymphocytes Absolute Auto 2.6 X10*3/uL (1.2-4.9); Mean Corpuscular HGB Conc 30.3 g/dl (31.0-35.0); Mean Corpuscular Hemoglobin 23.5 pg (27.0-33.0); Mean Corpuscular Volume 77.7 fL (80.0-98.0); NRBC Abs Auto 0.000 X10*3/uL (0.0-0.012); NRBC Pct Auto 0.0 /100WBC (0.0-0.2); Platelet Count 259 X10*3/uL (160-400); Red Blood Count 3.10 X10*6/uL (4.20-5.50); White Blood Count 7.7 X10*3/uL (4.8-10.8)
[2025-04-08 07:34] LABS: Creatinine Clr Calc Pharmacy 104.9; Estimated Glomerular Filt Rate > 60
[2025-04-08 07:35] LABS: Alanine Aminotransferase 10 U/L (0-31); Albumin Level 2.7 g/dL (3.5-5.0); Alkaline Phosphatase 59 U/L (39-117); Anion Gap 10 (12-20); Aspartate Amino Transferase 26 U/L (5-31); Blood Urea Nitrogen 13 mg/dL (9-16); Calcium 8.2 mg/dL (8.4-10.2); Carbon Dioxide 26 mmol/L (22-29); Chloride 111 mmol/L (96-108); Creatinine Clr Calc Pharmacy 94.5; Estimated Glomerular Filt Rate > 60; Potassium 3.7 mmol/L (3.3-5.1); Sodium 143 mmol/L (135-145); Total Protein 6.0 g/dL (6.5-8.0)
[2025-04-08] MEDS: oxyCODONE HCl Immed Release 5 MG TABLET PO ×3 (07:47→22:02)
--- NOTE | 2025-04-08 08:02 | HO.POSTANES ---
Post Anesthesia Evaluation Post Anesthesia Evaluation Date of Service: 04/08/25 Vital Signs: Vital Signs Temp Pulse Resp BP Pulse Ox O2 Del Method 04/08/25 07:24 97.8 F 64 15 106/59 L 97 Room Air 04/08/25 03:31 96.8 F 69 18 97/50 L 98 Room Air Anesthesia: General Mental Status: Awake Pain Control: Satisfactory Nausea/Vomiting: None Hydration: Adequate Anesthesia-Related Issues: No Anes. Related Issues
[2025-04-08] MEDS: methADONE HCl 20 MG/2 ML ORAL.CONC PO (08:58)
--- NOTE | 2025-04-08 10:18 | HO.ADDICTPRO ---
Subjective Subjective Date of Service: 04/08/25 Reason For Visit: infected arms Interim History: Patient seen in follow up for OUD More awake today, although minimal engagement with interview. Eyes open upon arrival, then closed once she saw t/w and RN enter the room. Received total of 30mg methadone BF present during interview, some education provided as to why dose has to be re-titrated, but reassured that we would be treating her OUD VSS, pain well managed. No restlessness or diaphoresis noted. Denies n/v or loose stools. Review of Systems Acute medical concerns: Yes Review of Systems Constitutional: Reports as per HPI and Reports no additional constitutional complaints Mental Status Exam Mental Status Exam Level of Consciousness: Awake and Alert Patient Behavior: Guarded and Avoidant Affect Description: Flat Speech Pattern: Clear Judgement: Fair Diagnostics Vital Signs (24Hr): Vital Signs - 24 hr 04/07/25 11:31 04/07/25 12:20 04/07/25 12:34 Temperature 98.1 F Pulse Rate 57 50 Respiratory Rate 18 Blood Pressure 91/52 L 90/47 L 114/54 L Pulse Oximetry 99 Oxygen Delivery Method Room Air Oxygen Flow Rate 04/07/25 13:41 04/07/25 13:45 04/07/25 13:50 Temperature 97 F Pulse Rate 60 53 52 Respiratory Rate 12 14 18 Blood Pressure 104/43 L 107/46 L 114/51 L Pulse Oximetry 97 98 100 Oxygen Delivery Method Simple Mask Room Air Room Air Oxygen Flow Rate 6 04/07/25 13:55 04/07/25 14:33 04/07/25 14:41 Temperature 97 F 97.0 F Pulse Rate 52 45 L 54 Respiratory Rate 16 14 Blood Pressure 117/53 L 130/61 Pulse Oximetry 100 100 Oxygen Delivery Method Room Air Room Air Oxygen Flow Rate 04/07/25 14:41 04/07/25 20:00 04/08/25 03:31 Temperature 98.3 F 96.8 F Pulse Rate 57 80 69 Respiratory Rate 18 18 Blood Pressure 132/66 97/50 L Pulse Oximetry 98 98 Oxygen Delivery Method Room Air Room Air Oxygen Flow Rate 04/08/25 07:24 Temperature 97.8 F Pulse Rate 64 Respiratory Rate 15 Blood Pressure 106/59 L Pulse Oximetry 97 Oxygen Delivery Method Room Air Oxygen Flow Rate BMI result Body Mass Index 21.1 Labs 04/08/25 07:01 04/08/25 07:01 Labs: Laboratory Results - last 48 hr 04/06/25 04/06/25 04/07/25 05:08 05:55 06:46 WBC RBC Hgb 7.1 L Hct 23.8 L MCV MCH MCHC RDW Plt Count MPV Immature Gran % (Auto) Neut % (Auto) Lymph % (Auto) Mcdowell % (Auto) Eos % (Auto) Baso % (Auto) Lymph # (Auto) Mcdowell # (Auto) Eos # (Auto) Baso # (Auto) Abs Immat Gran (auto) Absolute Neuts (auto) Absolute Nucleated RBC Nucleated RBC % (auto) Smear Path Review SEE NOTE Sodium Potassium Chloride Carbon Dioxide Anion Gap BUN Creatinine 0.59 Estim Creat Clear Calc 113.8 Estimated GFR > 60 Random Glucose Calcium Total Bilirubin AST ALT Alkaline Phosphatase Total Protein Albumin Stool Occult Blood Random Vancomycin Hep Bs Antibody GRAYZONE Crossmatch See Detail 04/07/25 04/07/25 04/08/25 16:03 19:20 07:01 WBC 7.7 RBC 3.10 L Hgb 7.3 L Hct 24.1 L MCV 77.7 L MCH 23.5 L MCHC 30.3 L RDW 15.6 Plt Count 259 MPV 9.9 Immature Gran % (Auto) 0.3 Neut % (Auto) 54.1 Lymph % (Auto) 34.1 Mcdowell % (Auto) 8.4 Eos % (Auto) 2.6 Baso % (Auto) 0.5 Lymph # (Auto) 2.6 Mcdowell # (Auto) 0.6 Eos # (Auto) 0.2 Baso # (Auto) 0.0 Abs Immat Gran (auto) 0.02 Absolute Neuts (auto) 4.2 Absolute Nucleated RBC 0.000 Nucleated RBC % (auto) 0.0 Smear Path Review Sodium 143 Potassium 3.7 Chloride 111 H Carbon Dioxide 26 Anion Gap 10 L BUN 13 Creatinine 0.64 Estim Creat Clear Calc Estimated GFR Random Glucose Calcium Total Bilirubin AST ALT Alkaline Phosphatase Total Protein Albumin Stool Occult Blood NEGATIVE Random Vancomycin 4.2 L Hep Bs Antibody Crossmatch 04/08/25 04/08/25 04/08/25 07:01 07:01 07:01 WBC RBC Hgb Hct MCV MCH MCHC RDW Plt Count MPV Immature Gran % (Auto) Neut % (Auto) Lymph % (Auto) Mcdowell % (Auto) Eos % (Auto) Baso % (Auto) Lymph # (Auto) Mcdowell # (Auto) Eos # (Auto) Baso # (Auto) Abs Immat Gran (auto) Absolute Neuts (auto) Absolute Nucleated RBC Nucleated RBC % (auto) Smear Path Review Sodium Potassium Chloride Carbon Dioxide Anion Gap BUN Creatinine 0.71 Estim Creat Clear Calc 104.9 94.5 Estimated GFR > 60 > 60 Random Glucose 111 Calcium 8.2 L D Total Bilirubin 0.2 AST 26 ALT 10 Alkaline Phosphatase 59 Total Protein 6.0 L Albumin 2.7 L Stool Occult Blood Random Vancomycin Hep Bs Antibody Crossmatch Medications Medications Current Medications Acetaminophen (Acetaminophen 325 Mg Tablet) 650 mg PO Q6H PRN PRN Reason: Pain, Mild 1-3,fever,headache Last Admin: 04/06/25 22:55 Dose: 650 mg Albuterol/Ipratropium (Albuterol/Iprat 2.5/0.5mg 3 Ml Ampul.Neb) 3 ml INHALE Q4H PRN PRN Reason: Shortness of Breath/Wheezing Calcium Carbonate (Calcium Carbonate 750 Mg Tab.Chew) 750 mg PO Q4H PRN PRN Reason: Heartburn Heparin Sodium (Porcine) 50 (units/ Sodium Chloride 5 ml) 0 units IVFLUSH QSHIFT [facility] Last Admin: 04/08/25 08:58 Dose: 50 unit Lactated Ringer's (Lr) 1,000 mls @ 125 mls/hr IVCONT .Q8H [facility] Last Infusion: 04/08/25 10:07 Dose: Infused Vancomycin HCl 1,250 mg/ (Sodium Chloride) 250 mls @ 166.667 mls/hr IV Q8H [facility] Last Admin: 04/08/25 08:59 Dose: 166.67 mls/hr Magnesium Hydroxide (Milk Of Magnesia 30 Ml Oral.Susp) 30 ml PO DAILY PRN PRN Reason: Constipation Melatonin (Melatonin 3 Mg Tablet) 6 mg PO BEDTIME PRN PRN Reason: Insomnia Methadone HCl (Methadone Hcl 20 Mg/2 Ml Oral.Conc) 20 mg PO ONCE ONE Stop: 04/08/25 14:01 Morphine Sulfate (Morphine Sulfate 4 Mg/Ml Cartridge) 4 mg IVPUSH Q4H PRN; Protocol PRN Reason: Pain, Severe (Pain Scale 7-10) Nicotine (Nicotine 14 Mg Patch.Td24) 14 mg TRANSDERMA DAILY [facility] Last Admin: 04/08/25 09:00 Dose: Not Given Ondansetron HCl (Ondansetron Hcl 4 Mg/2 Ml Vial) 4 mg IVPUSH Q8H PRN PRN Reason: Nausea and Vomiting Oxycodone HCl (Oxycodone Hcl Immed Release 5 Mg Tablet) 5 mg PO Q4H PRN PRN Reason: Pain, Moderate(Pain Scale 4-6) Last Admin: 04/08/25 07:47 Dose: 5 mg Pantoprazole Sodium (Pantoprazole Sodium 40 Mg/10 Ml Vial) 40 mg IVPUSH BID@0630,1630 [facility] Last Admin: 04/08/25 06:09 Dose: 40 mg Pharmacy Consult (Consult Rx Vancomycin Dosing) 1 each MISCELLANE DAILY PRN PRN Reason: Consult order Sodium Chloride (0.9 % Sodium Chloride Flush 3 Ml Syringe) 3 ml IVFLUSH QSHIFT [facility] Last Admin: 04/08/25 09:11 Dose: Not Given Allergies Allergies Allergy/AdvReac Type Severity Reaction Status Date / Time amoxicillin (AMOXICILLIN) Allergy Unknown ANAPHYLAXIS Verified 04/07/25 13:06 Penicillins (PENICILLINS) Allergy Unknown ANAPHYLAXIS Verified 04/07/25 13:06 escitalopram (From Lexapro) Allergy Facial Verified 04/07/25 13:06 Swelling ANTIDEPRESSANT Allergy Severe PT UNABLE Uncoded 04/07/25 13:06 TO RECALL NAME OF MED-FACIAL SWELLING Assessment & Plan Assessment & Plan (1) Opioid use disorder: Status: Acute Code(s): F11.90 - Opioid use, unspecified, uncomplicated Assessment and Plan: additional 20mg methadone this afternoon --total of 50mg today methadone 60mg in AM (04/09) will continue to follow and titrate dose as appropriate RN to ensure referral in place for methadone continuation at [facility] OTP Total time managing care of this patient today __20__ minutes.
--- NOTE | 2025-04-08 12:52 | PM.EVENT ---
Event Note Date of Service: 04/08/25 Event Note: She has no new complaints States that her forearms feel better with less pain Dressings taken down All I&D sites examined Much less induration on both forearms in the right hand I removed all packings I reapplied dry dressings and wrapped both forearms as well as the right hand with Demian roll All areas have improved significantly Follow up on cultures IV antibiotics Wound care Time Spent With Patient Time: Total time managing care of this patient today ____ minutes.
--- NOTE | 2025-04-08 15:34 | HO.PM.IMPN ---
Subjective Subjective Date of Service: 04/08/25 Interval History: Seen by bedside. Patient endorses feeling much better than yesterday. S/p durgical intervention with improvement in pain overall. Currently wearing bandages around hands and forearms. The patient is eager to be discharged and is requesting clarification on discharge disposition. Review of Systems Review of Systems: Yes all other systems are reviewed and are negative Physical Exam Exam: Exam: General: A&O x3, oriented to time place person and siutaion, comfortable, no pain Cardiac: S1, S2 auscultated with no S3/4, no MRG. Well perfused. Respiratory: Normal breath sounds auscultated throughout all lung zones, without wheezing, rales. Normal rate. GI/ : No abdominal pain on palpation, no masses or distentions. MSK: Bilateral forearm wounds with multiple areas of ulceration. On the left proximal forearm there was an area that appears to be fluid-filled with some passive drainage with gentle palpation however the patient was not tolerant to this exam. Both forearms have significant swelling and erythema Neurological: Normal neurological examination on overview, without obvious CN II-XII abnormalities. Vital Signs: Vital Signs: Last Vital Signs Temp 98.3 F 04/08/25 11:24 Pulse 64 04/08/25 11:24 Resp 14 04/08/25 11:24 BP 101/59 L 04/08/25 11:24 Pulse Ox 99 04/08/25 11:24 O2 Del Method Room Air 04/08/25 11:24 O2 Flow Rate 6 04/07/25 13:41 BMI result Body Mass Index 21.1 Extrem: Other: Dressings of b/l forearms and right hand in place with some purulent drainage noted on the right forearm external dressings. Skin was warm to the touch. No visible erythema surround the dressing sites. Dressings in place, some betadine staining on the external dressings. Improvement in swelling bilalaterally Objective Data Active Medications Acetaminophen (Acetaminophen 325 Mg Tablet) 650 mg PO Q6H PRN PRN Reason: Pain, Mild 1-3,fever,headache Last Admin: 04/06/25 22:55 Dose: 650 mg Documented By: MIMI Albuterol/Ipratropium (Albuterol/Iprat 2.5/0.5mg 3 Ml Ampul.Neb) 3 ml INHALE Q4H PRN PRN Reason: Shortness of Breath/Wheezing Calcium Carbonate (Calcium Carbonate 750 Mg Tab.Chew) 750 mg PO Q4H PRN PRN Reason: Heartburn Heparin Sodium (Porcine) 50 (units/ Sodium Chloride 5 ml) 0 units IVFLUSH QSHIFT [facility] Last Admin: 04/08/25 08:58 Dose: 50 unit Documented By: LEON Vancomycin HCl 1,250 mg/ (Sodium Chloride) 250 mls @ 166.667 mls/hr IV Q8H [facility] Last Infusion: 04/08/25 10:45 Dose: Infused Documented By: LEON Magnesium Hydroxide (Milk Of Magnesia 30 Ml Oral.Susp) 30 ml PO DAILY PRN PRN Reason: Constipation Melatonin (Melatonin 3 Mg Tablet) 6 mg PO BEDTIME PRN PRN Reason: Insomnia Morphine Sulfate (Morphine Sulfate 4 Mg/Ml Cartridge) 4 mg IVPUSH Q4H PRN; Protocol PRN Reason: Pain, Severe (Pain Scale 7-10) Nicotine (Nicotine 14 Mg Patch.Td24) 14 mg TRANSDERMA DAILY [facility] Last Admin: 04/08/25 09:00 Dose: Not Given Documented By: LEON Non-Admin Reason: Patient Refused Ondansetron HCl (Ondansetron Hcl 4 Mg/2 Ml Vial) 4 mg IVPUSH Q8H PRN PRN Reason: Nausea and Vomiting Oxycodone HCl (Oxycodone Hcl Immed Release 5 Mg Tablet) 5 mg PO Q4H PRN PRN Reason: Pain, Moderate(Pain Scale 4-6) Last Admin: 04/08/25 07:47 Dose: 5 mg Documented By: LEON Pantoprazole Sodium (Pantoprazole Sodium 40 Mg/10 Ml Vial) 40 mg IVPUSH BID@0630,1630 [facility] Last Admin: 04/08/25 06:09 Dose: 40 mg Documented By: CARLOS Pharmacy Consult (Consult Rx Vancomycin Dosing) 1 each MISCELLANE DAILY PRN PRN Reason: Consult order Sodium Chloride (0.9 % Sodium Chloride Flush 3 Ml Syringe) [facility] Last Admin: 04/08/25 09:11 Dose: Not Given Documented By: LEON Non-Admin Reason: Previously Administered Labs 04/08/25 07:01 04/08/25 07:01 Labs: Laboratory Results - last 24 hr 04/07/25 04/07/25 04/08/25 16:03 19:20 07:01 MCV 77.7 L MCH 23.5 L MCHC 30.3 L RDW 15.6 Plt Count 259 MPV 9.9 Immature Gran % (Auto) 0.3 Neut % (Auto) 54.1 Lymph % (Auto) 34.1 [place] % (Auto) 8.4 Eos % (Auto) 2.6 Baso % (Auto) 0.5 Lymph # (Auto) 2.6 [place] # (Auto) 0.6 Eos # (Auto) 0.2 Baso # (Auto) 0.0 Abs Immat Gran (auto) 0.02 Absolute Neuts (auto) 4.2 Absolute Nucleated RBC 0.000 Nucleated RBC % (auto) 0.0 Anion Gap 10 L Estim Creat Clear Calc 104.9 Estimated GFR Random Glucose Calcium Total Bilirubin AST ALT Alkaline Phosphatase Total Protein Albumin Stool Occult Blood NEGATIVE Random Vancomycin 4.2 L 04/08/25 04/08/25 07:01 07:01 MCV MCH MCHC RDW Plt Count MPV Immature Gran % (Auto) Neut % (Auto) Lymph % (Auto) [place] % (Auto) Eos % (Auto) Baso % (Auto) Lymph # (Auto) [place] # (Auto) Eos # (Auto) Baso # (Auto) Abs Immat Gran (auto) Absolute Neuts (auto) Absolute Nucleated RBC Nucleated RBC % (auto) Anion Gap Estim Creat Clear Calc 94.5 Estimated GFR > 60 > 60 Random Glucose 111 Calcium 8.2 L D Total Bilirubin 0.2 AST 26 ALT 10 Alkaline Phosphatase 59 Total Protein 6.0 L Albumin 2.7 L Stool Occult Blood Random Vancomycin Microbiology Microbiology Results: Microbiology 04/07/25 13:20 Gram Stain - Final Forearm Right Routine Culture - Preliminary Staphylococcus aureus 04/05/25 20:00 Blood Culture - Preliminary Blood - Venous No growth after 48 hours. 04/05/25 19:59 Blood Culture - Preliminary Blood - Venous No growth after 48 hours. Assessment and Plan (1) Cellulitis of arm, left: Status: Acute Assessment and Plan: BUE cellulitis from IVDA (heroin and cocaine) Pt started on Vancomcyin in ED, Pharmacy consulted IVF provided in ED CT neg for OM, soft tissue gas General surgery consulted, s/p I&D of bilateral hands and forearms. Central line placed in ED: R femoral due to poor access in [facility]'s Follow blood cultures [place] 0.8, noted leukocytosis with elevated ESR and CRP HIV and hepatitis testing ordered Pt does not meet criteria for sepsis at this time Echo ordered to rule out endocarditis (2) Cellulitis of right arm: Status: Acute Assessment and Plan: BUE cellulitis from IVDA (heroin and cocaine) Pt started on Vancomcyin in ED, Pharmacy consulted IVF provided in ED CT neg for OM, soft tissue gas General surgery consulted, s/p I&D of bilateral hands and forearms. Central line placed in ED: R femoral due to poor access in [facility]'s Follow blood cultures LA 0.8, noted leukocytosis with elevated ESR and CRP HIV and hepatitis testing ordered Pt does not meet criteria for sepsis at this time Echo ordered to rule out endocarditis (3) Anemia: Status: Acute Assessment and Plan: Anemic on evaluation. Hgb 6.2 s/p transfusion. Currently stable at 7.1 B12, folic acid unremarkable. Iron level low, TIBC borderline low, Iron saturation 10%. AMEENA noted. Front End Java Developer consulted. Probably element of anemia of chronic diease superimposed. (4) Homelessness: Status: Acute Assessment and Plan: Case management, [place], machine molder currently consulting (5) Drug abuse, IV: Status: Acute Assessment and Plan: [facility] history of cocaine and heroin use. PLAN - COWS monitoring - CIWA monitoring (for cocaine use) - Analgesia prescribed - Addiction medicine consulted (6) Polysubstance abuse: Status: Acute Assessment and Plan: Addictions consulted - pt was on methadone via [facility] abiout 2-3 months ago [facility] history of cocaine and heroin use. PLAN - COWS monitoring - CIWA monitoring (for cocaine use) - Analgesia prescribed - Addiction medicine consulted Total time managing care of this patient today: 35 minutes. Quality Stroke Does the patient have a stroke diagnosis?: No Reason for No Anti-thrombotic by Day Two: Contraindicated VTE Prior VTE?: No VTE Risk Level:: Medical - moderate - high VTE Device Contraindication: N/A - Device Ordered VTE Drug Contraindication: N/A - Med Ordered (enoxaparin 40mg SQ OD )
[2025-04-08] MEDS: 0.9 % Sodium Chloride Flush 3 ML SYRINGE IVFLUSH (16:07)
[2025-04-09] MEDS: Heparin Sodium,Porcine Flush 50 UNITS, 0.9 % Sodium Chloride Flush 5 ML IVFLUSH ×2 (00:50→10:52)
[2025-04-09] MEDS: 0.9 % Sodium Chloride Flush 3 ML SYRINGE IVFLUSH ×2 (01:03→08:59)
[2025-04-09] MEDS: oxyCODONE HCl Immed Release 5 MG TABLET PO ×4 (02:41→13:56)
[2025-04-09 03:30] VITALS: BP 127/56; PULSE 75; RESP 18; TEMP 36.3; O2SAT 94
[2025-04-09 04:00] VITALS: PULSE 75
[2025-04-09 05:52] LABS: MANUAL DIFF FLAG NO
[2025-04-09 05:53] LABS: Hematocrit 26.5 % (37.0-47.0); Hemoglobin 7.9 g/dl (12.0-16.0); Imm Gran Abs Auto 0.03 X10*3/uL (0.00-0.03); Imm Gran Pct Auto 0.4 % (0.0-0.4); Lymphocytes Absolute Auto 2.9 X10*3/uL (1.2-4.9); Mean Corpuscular HGB Conc 29.8 g/dl (31.0-35.0); Mean Corpuscular Hemoglobin 23.5 pg (27.0-33.0); Mean Corpuscular Volume 78.9 fL (80.0-98.0); NRBC Abs Auto 0.000 X10*3/uL (0.0-0.012); NRBC Pct Auto 0.0 /100WBC (0.0-0.2); Platelet Count 302 X10*3/uL (160-400); Red Blood Count 3.36 X10*6/uL (4.20-5.50); White Blood Count 7.3 X10*3/uL (4.8-10.8)
[2025-04-09 06:09] LABS: Anion Gap 10 (12-20); Blood Urea Nitrogen 12 mg/dL (9-16); Calcium 8.2 mg/dL (8.4-10.2); Carbon Dioxide 29 mmol/L (22-29); Chloride 108 mmol/L (96-108); Creatinine Clr Calc Pharmacy 106.6; Estimated Glomerular Filt Rate > 60; Potassium 3.6 mmol/L (3.3-5.1); Sodium 143 mmol/L (135-145)
--- NOTE | 2025-04-09 06:41 | PM.PNGS ---
Subjective Subjective Date of Service: 04/09/25 <July Arteaga - Last Filed: 04/09/25 06:55> 04/09/25 <Timur Gonzalez PA-C - Last Filed: 04/09/25 13:39> Interval history: The patient is a 34-year-old female POD2 s/p incision and drainage, sharp excisional debridement of abscess sites on the left and right forearm as well as the right hand secondary to IVDU. Upon entering the room she appears to be resting comfortably. She denies fever, chills, nausea, vomiting. She has been able to ambulate without assistance. She rates her pain b/l as 6/10, worse on the right forearm in comparison to the left. She describes this pain as burning and is requesting medication to manage her pain. <July Soto Last Filed: 04/09/25 06:55> The patient is a 34-year-old female POD2 s/p incision and drainage, sharp excisional debridement of abscess sites on the left and right forearm as well as the right hand secondary to IVDU. Upon entering the room she appears to be resting comfortably. She denies fever, chills, nausea, vomiting. She has been able to ambulate without assistance. She rates her pain b/l as 6/10, worse on the right forearm in comparison to the left. She describes this pain as burning and is requesting medication to manage her pain. appears improved, pain 6/10. denies fever/chills. She is wanting to DC, she does not want to transfer to a substance use program. <Timur Gonzalez PA-C - Last Filed: 04/09/25 13:39> Physical Exam Vital Signs: Vital Signs: Last Vital Signs Temp 97.3 F 04/09/25 03:30 Pulse 75 04/09/25 03:30 Resp 18 04/09/25 03:30 BP 127/56 L 04/09/25 03:30 Pulse Ox 94 04/09/25 03:30 O2 Del Method Room Air 04/09/25 03:30 O2 Flow Rate 6 04/07/25 13:41 BMI result Body Mass Index 21.1 <July Soto Last Filed: 04/09/25 06:55> Const: General: cooperative, comfortable, no acute distress, alert and awake <July Chandler - Last Filed: 04/09/25 06:55> Orientation/consciousness: patient oriented x3 <July Arteaga Last Filed: 04/09/25 06:55> Resp: Effort & Inspection: normal respiratory effort and able to speak in complete sentences <July Arteaga - Last Filed: 04/09/25 06:55> Neuro: General: patient oriented x3 <uJly Arteaga Last Filed: 04/09/25 06:55> Extrem: Other: Dressing in place on left and right forearm as well as right hand. Small amount of drainage noted on the dressing of the right forearm. No erythema or purulent drainage noted around the dressings. <July Arteaga - Last Filed: 04/09/25 06:55> Other: Dressing in place on left and right forearm as well as right hand. Small amount of drainage noted on the dressing of the right forearm. No erythema or purulent drainage noted around the dressings. RUE: LUE: <Timur Gonzalez PA-C - Last Filed: 04/09/25 13:39> Objective Data Active Medications Acetaminophen (Acetaminophen 325 Mg Tablet) 650 mg PO Q6H PRN PRN Reason: Pain, Mild 1-3,fever,headache Last Admin: 04/06/25 22:55 Dose: 650 mg Documented By: MIMI Albuterol/Ipratropium (Albuterol/Iprat 2.5/0.5mg 3 Ml Ampul.Neb) 3 ml INHALE Q4H PRN PRN Reason: Shortness of Breath/Wheezing Calcium Carbonate (Calcium Carbonate 750 Mg Tab.Chew) 750 mg PO Q4H PRN PRN Reason: Heartburn Heparin Sodium (Porcine) 50 (units/ Sodium Chloride 5 ml) 0 units IVFLUSH QSHIFT [facility] Last Admin: 04/09/25 00:50 Dose: 50 unit Documented By: CARLOS Enoxaparin Sodium (Enoxaparin Sodium 40 Mg/0.4 Ml Syringe) 40 mg SUBCUT Q24H [facility] Last Admin: 04/08/25 17:23 Dose: Not Given Documented By: LEON Non-Admin Reason: Patient Refused Vancomycin HCl 1,250 mg/ (Sodium Chloride) 250 mls @ 166.667 mls/hr IV Q8H [facility] Last Infusion: 04/09/25 02:35 Dose: Infused Documented By: CARLOS Magnesium Hydroxide (Milk Of Magnesia 30 Ml Oral.Susp) 30 ml PO DAILY PRN PRN Reason: Constipation Melatonin (Melatonin 3 Mg Tablet) 6 mg PO BEDTIME PRN PRN Reason: Insomnia Morphine Sulfate (Morphine Sulfate 4 Mg/Ml Cartridge) 4 mg IVPUSH Q4H PRN; Protocol PRN Reason: Pain, Severe (Pain Scale 7-10) Nicotine (Nicotine 14 Mg Patch.Td24) 14 mg TRANSDERMA DAILY [facility] Last Admin: 04/08/25 09:00 Dose: Not Given Documented By: LEON Non-Admin Reason: Patient Refused Ondansetron HCl (Ondansetron Hcl 4 Mg/2 Ml Vial) 4 mg IVPUSH Q8H PRN PRN Reason: Nausea and Vomiting Oxycodone HCl (Oxycodone Hcl Immed Release 5 Mg Tablet) 5 mg PO Q4H PRN PRN Reason: Pain, Moderate(Pain Scale 4-6) Last Admin: 04/09/25 02:41 Dose: 5 mg Documented By: CARLOS Pharmacy Consult (Consult Rx Vancomycin Dosing) 1 each MISCELLANE DAILY PRN PRN Reason: Consult order Sodium Chloride (0.9 % Sodium Chloride Flush 3 Ml Syringe) 3 ml IVFLUSH QSHIFT [facility] Last Admin: 04/09/25 01:03 Dose: 3 ml Documented By: CARLOS <July Arteaga - Last Filed: 04/09/25 06:55> Labs CBC & Chem 7: 04/09/25 05:43 04/09/25 05:43 <July Arteaga - Last Filed: 04/09/25 06:55> Labs: Laboratory Results - last 24 hr 04/08/25 04/08/25 04/08/25 07:01 07:01 07:01 MCV 77.7 L MCH 23.5 L MCHC 30.3 L RDW 15.6 Plt Count 259 MPV 9.9 Immature Gran % (Auto) 0.3 Neut % (Auto) 54.1 Lymph % (Auto) 34.1 [place] % (Auto) 8.4 Eos % (Auto) 2.6 Baso % (Auto) 0.5 Lymph # (Auto) 2.6 [place] # (Auto) 0.6 Eos # (Auto) 0.2 Baso # (Auto) 0.0 Abs Immat Gran (auto) 0.02 Absolute Neuts (auto) 4.2 Absolute Nucleated RBC 0.000 Nucleated RBC % (auto) 0.0 Anion Gap 10 L Estim Creat Clear Calc 104.9 94.5 Estimated GFR > 60 > 60 Random Glucose 111 Calcium 8.2 L D Total Bilirubin 0.2 AST 26 ALT 10 Alkaline Phosphatase 59 Total Protein 6.0 L Albumin 2.7 L Random Vancomycin 04/08/25 04/09/25 15:33 05:43 MCV 78.9 L MCH 23.5 L MCHC 29.8 L RDW 15.7 Plt Count 302 MPV 10.0 Immature Gran % (Auto) 0.4 Neut % (Auto) 46.5 Lymph % (Auto) 39.4 [place] % (Auto) 9.3 Eos % (Auto) 3.4 Baso % (Auto) 1.0 Lymph # (Auto) 2.9 [place] # (Auto) 0.7 Eos # (Auto) 0.3 Baso # (Auto) 0.1 Abs Immat Gran (auto) 0.03 Absolute Neuts (auto) 3.4 Absolute Nucleated RBC 0.000 Nucleated RBC % (auto) 0.0 Anion Gap 10 L Estim Creat Clear Calc 106.6 Estimated GFR > 60 Random Glucose 102 Calcium 8.2 L Total Bilirubin AST ALT Alkaline Phosphatase Total Protein Albumin Random Vancomycin 16.0 <July Arteaga - Last Filed: 04/09/25 06:55> Microbiology Microbiology Results: Microbiology 04/07/25 13:20 Gram Stain - Final Forearm Right Routine Culture - Preliminary Staphylococcus aureus <July Arteaga - Last Filed: 04/09/25 06:55> Procedures Date of Service Date of Service: 04/09/25 <July Arteaga - Last Filed: 04/09/25 06:55> 04/09/25 <Timur Gonzalez PA-C - Last Filed: 04/09/25 13:39> Progress Note: A&P Assessment and plan (1) Cellulitis of arm, left: Status: Acute <July Arteaga - Last Filed: 04/09/25 06:55> (2) Cellulitis of right arm: Status: Acute <July Arteaga - Last Filed: 04/09/25 06:55> Assessment and Plan: The patient is a 34-year-old female POD2 s/p incision and drainage, sharp excisional debridement of abscess sites on the left and right forearm as well as the right hand secondary to IVDU. She appears to be doing well and is tolerating antibiotics. Her pain is 6/10 and she is requesting medication to manage her pain. No signs of systemic infection. Preliminary blood cultures are negative, wound culture from right forearm was positive for staph aureus. We will plan to continue with wound care and antibiotics today and will continue to provide support and education about keeping her incisions clean and dry. The addiction medicine team is managing her methadone dosing. Continue to ambulate as tolerated Encouraged spirometry use Pain control Continue wound care and dressing changes <July Arteaga - Last Filed: 04/09/25 06:55> The patient is a 34-year-old female POD2 s/p incision and drainage, sharp excisional debridement of abscess sites on the left and right forearm as well as the right hand secondary to IVDU. She appears to be doing well and is tolerating antibiotics. Her pain is 6/10 and she is requesting medication to manage her pain. No signs of systemic infection. Preliminary blood cultures are negative, wound culture from right forearm was positive for staph aureus. We will plan to continue with wound care and antibiotics today and will continue to provide support and education about keeping her incisions clean and dry. The addiction medicine team is managing her methadone dosing. Continue to ambulate as tolerated Encouraged spirometry use Pain control Continue wound care and dressing changes Patient seen and examined independently, I agree with the above assessment in plan. On exam there remains some scant purulent discharge from the forearm wounds, edema and erythema improved. Remains very tender to the touch. Will continue with daily wound care, wet to dry dressings. patient does not want to transfer to program, is homeless, will have difficulty managing the wound care after d/c. Continue antibiotics per ID recommendations daily dressing changes, wet to dry packing on right forearm, cover with gauze, wrap with kerlix. wet to dry, gauze kerlix for all other wounds. <Timur Gonzalez PA-C - Last Filed: 04/09/25 13:39> Time Spent With Patient Time: Total time managing care of this patient today ____ minutes. <July Arteaga - Last Filed: 04/09/25 06:55> Quality Stroke Does the patient have a stroke diagnosis?: No <July Arteaga Filed: 04/09/25 06:55> Reason for No Anti-thrombotic by Day Two: Contraindicated <July Arteaga Filed: 04/09/25 06:55> VTE Prior VTE?: No <July Arteaga Filed: 04/09/25 06:55> VTE Risk Level:: Medical - moderate - high <July Arteaga Filed: 04/09/25 06:55> VTE Device Contraindication: N/A - Device Ordered <July Arteaga Filed: 04/09/25 06:55> VTE Drug Contraindication: N/A - Med Ordered (enoxaparin 40mg SQ OD ) <July Arteaga Filed: 04/09/25 06:55>
[2025-04-09 07:50] VITALS: BP 116/58; PULSE 58; RESP 18; TEMP 36.4; O2SAT 96
[2025-04-09] MEDS: methADONE HCl 20 MG/2 ML ORAL.CONC 45 MG PO (08:54)
[2025-04-09 10:00] VITALS: PULSE 58
--- NOTE | 2025-04-09 12:57 | P.CNID_ITS ---
History of Present Illness Data of Consult Service Date: 04/09/25 Requesting physician: Arlet Barillas Primary Care Provider: None Physician HPI Reason for consult: forearm wounds She has discomfort bilateral forearms where she injects heroin and cocaine. She has chills but no fever. Blood cultures are negative. HIV and Hepatitis C also are negative. Review of Systems 2 Review of Systems: Yes all other systems are reviewed and are negative PMFSH Past Medical History Medical History Tobacco dependence Depression Dental caries Drug abuse, IV Anemia Polysubstance abuse Family History Family history: reviewed and not pertinent Social History Social History Household Members: None Housing: Homeless Are you a primary healthcare liaison to a significant other at home: No Do you presently have visiting nurse or other home services: No Unable to assess alcohol history related to: Unable to respond Patient Tobacco Use Status: Current everyday Tobacco user Tobacco use type: Cigarette Cigarette Packs Per Day: 1 Cigarettes Per Day: 20.0 Second Hand Smoke Exposure: No Substance Use Type: Crack/Cocaine and Heroin service: No Travel History Ebola Risk: Travel/Contact With Anyone From Affected Area/s: No Has Patient Experienced Ebola Symptoms: No Meds Allergies Allergy/AdvReac Type Severity Reaction Status Date / Time amoxicillin (AMOXICILLIN) Allergy Unknown ANAPHYLAXIS Verified 04/07/25 13:06 Penicillins (PENICILLINS) Allergy Unknown ANAPHYLAXIS Verified 04/07/25 13:06 escitalopram (From Lexapro) Allergy Facial Verified 04/07/25 13:06 Swelling ANTIDEPRESSANT Allergy Severe PT UNABLE Uncoded 04/07/25 13:06 TO RECALL NAME OF MED-FACIAL SWELLING Active Medications: Current Medications Acetaminophen (Acetaminophen 325 Mg Tablet) 650 mg PO Q6H PRN PRN Reason: Pain, Mild 1-3,fever,headache Last Admin: 04/06/25 22:55 Dose: 650 mg Albuterol/Ipratropium (Albuterol/Iprat 2.5/0.5mg 3 Ml Ampul.Neb) 3 ml INHALE Q4H PRN PRN Reason: Shortness of Breath/Wheezing Calcium Carbonate (Calcium Carbonate 750 Mg Tab.Chew) 750 mg PO Q4H PRN PRN Reason: Heartburn Heparin Sodium (Porcine) 50 (units/ Sodium Chloride 5 ml) 0 units IVFLUSH QSCOFT [facility] Last Admin: 04/09/25 10:52 Dose: 50 unit Enoxaparin Sodium (Enoxaparin Sodium 40 Mg/0.4 Ml Syringe) 40 mg SUBCUT Q24H [facility] Last Admin: 04/08/25 17:23 Dose: Not Given Vancomycin HCl 1,250 mg/ (Sodium Chloride) 250 mls @ 166.667 mls/hr IV Q8H [facility] Last Infusion: 04/09/25 10:54 Dose: Infused Magnesium Hydroxide (Milk Of Magnesia 30 Ml Oral.Susp) 30 ml PO DAILY PRN PRN Reason: Constipation Melatonin (Melatonin 3 Mg Tablet) 6 mg PO BEDTIME PRN PRN Reason: Insomnia Morphine Sulfate (Morphine Sulfate 4 Mg/Ml Cartridge) 4 mg IVPUSH Q4H PRN; Protocol PRN Reason: Pain, Severe (Pain Scale 7-10) Nicotine (Nicotine 14 Mg Patch.Td24) 14 mg TRANSDERMA DAILY [facility] Last Admin: 04/09/25 08:10 Dose: Not Given Ondansetron HCl (Ondansetron Hcl 4 Mg/2 Ml Vial) 4 mg IVPUSH Q8H PRN PRN Reason: Nausea and Vomiting Oxycodone HCl (Oxycodone Hcl Immed Release 5 Mg Tablet) 5 mg PO Q4H PRN PRN Reason: Pain, Moderate(Pain Scale 4-6) Last Admin: 04/09/25 11:02 Dose: 5 mg Pharmacy Consult (Consult Rx Vancomycin Dosing) 1 each MISCELLANE DAILY PRN PRN Reason: Consult order Sodium Chloride (0.9 % Sodium Chloride Flush 3 Ml Syringe) 3 ml IVFLUSH [facility] Last Admin: 04/09/25 08:59 Dose: 3 ml Home Medications ?Medication ?Instructions ?Recorded ?Confirmed ?Last Taken ?Type No Known Home Meds 04/06/25 04/06/25 Un known History Physical Exam 2 Vital Signs: Vital Signs: Last Vital Signs Temp 97.5 F 04/09/25 07:50 Pulse 58 04/09/25 07:50 Resp 18 04/09/25 07:50 BP 116/58 L 04/09/25 07:50 Pulse Ox 96 04/09/25 07:50 O2 Del Method Room Air 04/09/25 07:50 O2 Flow Rate 6 04/07/25 13:41 BMI result Body Mass Index 21.1 Const: General: cooperative HEENT: Head: Yes normal to inspection Face and sinus: Yes normal facial exam Mouth: Normal oral and palatal mucosa present Teeth and gingiva: d entition normal Eyes: General: appearance normal, both eyes and all related structures P upils: Equal, round and reactive pupils present Resp: Effort & Inspection: normal respiratory effort Cardio: Rate: regular rate Rhythm: regular rhythm GI: Palpation (GI): Soft to palpation and nontender : General: Yes no CVA tenderness Back/Spine/Pelvis: Back: no CVA tenderness Skin: General skin exam: no rashes or lesions noted Neuro: General: moves all extremities Cranial nerves: Yes Equal, round and reactive pupils present Extrem: Other: arms no leaking ,swollen but less and not as painful Psych: Appearance: grossly normal Results Labs 04/09/25 05:43 04/09/25 05:43 Labs: Short CBC 04/09/25 Range/Units 05:43 WBC 7.3 (4.8-10.8) X10*3/uL Hgb 7.9 L (12.0-16.0) g/dl Hct 26.5 L (37.0-47.0) % Plt Count 302 (160-400) X10*3/uL BMP 04/09/25 05:43 Sodium 143 Potassium 3.6 Chloride 108 Carbon Dioxide 29 BUN 12 Creatinine 0.63 Calcium 8.2 L Microbiology Microbiology Results: Microbiology 04/07/25 13:20 Forearm Right Gram Stain - Final 04/07/25 13:20 Forearm Right Routine Culture - Final Staphylococcus aureus 04/05/25 20:00 Blood - Venous Blood Culture - Preliminary No growth after 48 hours. 04/05/25 19:59 Blood - Venous Blood Culture - Preliminary No growth after 48 hours. Assessment and Plan (1) Drug abuse, IV: Status: Acute (2) Opioid use disorder: Status: Acute (3) Cellulitis of arm, left: Status: Acute (4) Cellulitis of right arm: Status: Acute Plan Would give po Doxycycline as no OM or clot for 10 days. Follow up prn need.
[2025-04-09 13:25] VITALS: BP 102/50; PULSE 65
--- NOTE | 2025-04-09 14:40 | P.DS_ITS ---
DS: Providers Provider Date of Service: 04/06/25 Date of admission: 04/06/25 02:11 Date of discharge: 04/09/25 Primary care physician: None Physician Consults: 04/06/25 02:38 Addiction Medicine Provider Routine Consulting Provider: Addiction Covering Reason for consultation: IVDA was on methadone Has provider been notified: yes 04/06/25 03:26 Consult to General Surgery Routine Consulting Provider: [facility] Reason for consultation: ? I/D abscess BUE from IVDA Has provider been notified: yes 04/08/25 15:40 Consult to Infectious Diseases Routine Consulting Provider: [facility] Reason for consultation: bilateral hand and forearm abscesses 2/2 IVDU s/p I&D 04/07. on vanco. Has provider been notified: yes Attending physician on discharge: Arlet Barillas DS: Diagnosis Discharge Diagnosis (1) Cellulitis of arm, left: Status: Acute (2) Cellulitis of right arm: Status: Acute (3) Drug abuse, IV: Status: Acute (4) Opioid use disorder: Status: Acute DS: Summary Hospital Course Hospital Course: Patient is a 34 year old female, with an history of homelessness, opioid use disorder/IVDU, PSUD, presenting to hospital with complaints of sore and painful arms, admitted with bilateral UE cellulitis with abscesses of the bilateral hands and forearms due to IVDU. Pt started on Vancomcyin in ED, Pharmacy consulted IVF provided in ED CT neg for OM, soft tissue gas General surgery consulted, s/p I&D of bilateral hands and forearms. Central line placed in ED: R femoral due to poor access in BUE's Follow blood cultures were negative for blood stream infection. HIV and hepatitis testing ordered, returning as negative. Pt does not meet criteria for sepsis at this time Echo ordered to rule out endocarditis ; no evidence of valvular vegeation. MRSA on swab +, no bloodstream infection or sepsis. The patient was seen by ID recommending transition to PO doxycycline 100mg BID PO x10 days. Will be seen in outpatient setting by surgery, ID, addiction medicine. Status at Discharge Functional status at discharge: independent ambulation Overall status at discharge: patient is back to baseline Time Attestation Total time managing care of this patient today: 45 mintues. Discharge Coordination Time (in mins): 35 Quality: Safe Use of Opioids Does Pt have an Active Cancer Diagnosis on the Problem List?: No Quality: Stroke Does the patient have a stroke diagnosis?: No Physical Exam Exam: Exam: General: A&O x3, oriented to time place person and siutaion, comfortable, no pain Cardiac: S1, S2 auscultated with no S3/4, no MRG. Well perfused. Respiratory: Normal breath sounds auscultated throughout all lung zones, without wheezing, rales. Normal rate. GI/ : No abdominal pain on palpation, no masses or distentions. MSK: Bilateral forearm wounds with multiple areas of ulceration. On the left proximal forearm there was an area that appears to be fluid-filled with some passive drainage with gentle palpation however the patient was not tolerant to this exam. Both forearms have significant swelling and erythema Neurological: Normal neurological examination on overview, without obvious CN II-XII abnormalities. Vital Signs: Vital Signs: Last Vital Signs Temp 97.5 F 04/09/25 07:50 Pulse 65 04/09/25 13:25 Resp 18 04/09/25 07:50 BP 102/50 L 04/09/25 13:25 Pulse Ox 96 04/09/25 07:50 O2 Del Method Room Air 04/09/25 07:50 O2 Flow Rate 6 04/07/25 13:41 BMI result Body Mass Index 21.1 DS: Data Data Completed and Pending Labs on day of discharge: Laboratory Results - last 24 hr 04/06/25 04/08/25 04/09/25 05:55 15:33 05:43 WBC 7.3 RBC 3.36 L Hgb 7.9 L Hct 26.5 L MCV 78.9 L MCH 23.5 L MCHC 29.8 L RDW 15.7 Plt Count 302 MPV 10.0 Immature Gran % (Auto) 0.4 Neut % (Auto) 46.5 Lymph % (Auto) 39.4 [place] % (Auto) 9.3 Eos % (Auto) 3.4 Baso % (Auto) 1.0 Lymph # (Auto) 2.9 [place] # (Auto) 0.7 Eos # (Auto) 0.3 Baso # (Auto) 0.1 Abs Immat Gran (auto) 0.03 Absolute Neuts (auto) 3.4 Absolute Nucleated RBC 0.000 Nucleated RBC % (auto) 0.0 Sodium 143 Potassium 3.6 Chloride 108 Carbon Dioxide 29 Anion Gap 10 L BUN 12 Creatinine 0.63 Estim Creat Clear Calc 106.6 Estimated GFR > 60 Random Glucose 102 Calcium 8.2 L Random Vancomycin 16.0 Crossmatch See Detail Preliminary micro results at discharge 04/05/25 20:00 Blood Culture - Preliminary Blood - Venous No growth after 48 hours. 04/05/25 19:59 Blood Culture - Preliminary Blood - Venous No growth after 48 hours. Discharge Plan Discharge Anticipated Discharge Date/Time: 04/09/25 14:55 Patient Disposition: Home, Self-Care Discharge Diagnosis: Bilateral UE cellulitis complicated by abscesses of the bilateral hands & forearms 2/2 IVDU s/p I&D, without evidenced bloodstream infection or OM. Referrals: [facility] W[facility] Care [Outside] - 3-5 Days Referral Note: call the wound clinic to schedule follow up appointments [facility] [Primary Care Provider, Medical] - 1 Week Discharge Medications: New doxycycline hyclate 100 mg capsule 100 mg PO BID 10 Days Qty: 20 0RF Discharge Orders: Discharge Order (Routine); Ordered 04/09/25 Ordered By: Arlet Barillas Diet: Advance to usual diet Activity on Discharge: As tolerated Stand Alone Forms: Patient Portal Discharge page Print Language: Thai Care Plan Goals: - FU with surgery outpatient - FU with PCP - FU with infectious diseases outpatient - FU with addiction medicine outpatient Health Concerns: - Abscesses bilateral UE forearms and hands - Active IVDU - Homelessness Plan of Treatment: As above Assessment: Improved post I&D. Continue antibiotics FU PCP
--- NOTE | 2025-04-09 15:11 | MHC.CM.PN ---
Patient medically cleared for dc home self care. She will follow up with wound clinic, and is able to change dressing independently. Will be sent home w/ supplies. Also provided w/ schedule for [employer] [facility] - who can assist w/ dressing changes PRN. Prefers to dc back to the street on foot.
[2025-04-09 15:14] VITALS: BP 103/55; PULSE 73; RESP 16; TEMP 36.8; O2SAT 99
[2025-04-09] MEDS: methADONE HCl 20 MG/2 ML ORAL.CONC 10 MG PO (15:23)
--- NOTE | 2025-04-09 15:36 | PC.NURSE ---
Patient discharged before ordered taking home narcan was able to be given. Patient was anxious to leave. CASTING MOLDER Sarah Rawls aware. Discharge paperwork signed. Central line removed by BRYCE Cheung
--- NOTE | 2025-04-16 18:43 | P.CDIM_ITS ---
PROVIDER RESPONSE TEXT: To clarify, the appropriate diagnosis supported by the clinical indicators: Hypocalcemia: possible QUERY TEXT: PHYSICIAN'S DOCUMENTATION REQUEST Date of Query: 04/07/2025 11:35 AM EDT Patient Name: Susana Zamora Admit Date: 04/06/2025 Dear Medhat Salvador MD, A review of the medical record indicates additional documentation may be needed. Please review below and update the documentation accordingly. Clinical Indicators: LABS: calcium 7.5 L Based on the above, is there a diagnosis that correlates with these findings? Hypocalcemia possible, probable, suspected, cannot rule out etc. Labs indicate a diagnosis of (please specify) Other (explain) Clinically unable to determine (explain) Thank you, Sandie Woods, CCS, CDIS Use of terms such as suspected, likely, concern for, or probable (associated with a specific diagnosis that is being evaluated, monitored, or treated as if it exists) are acceptable and can be coded in the inpatient setting, when documented at the time of discharge. Please use your independent medical judgment in providing your response. THIS QUERY IS PART OF THE PERMANENT MEDICAL RECORD
--- NOTE | 2025-04-16 18:43 | P.CDIM_ITS ---
PROVIDER RESPONSE TEXT: To clarify, the appropriate diagnosis supported by the clinical indicators: Iron deficiency anemia due to chronic blood loss: suspected QUERY TEXT: PHYSICIAN'S DOCUMENTATION REQUEST Date of Query: 04/07/2025 08:22 AM EDT Patient Name: Susana Zamora Admit Date: 04/06/2025 Dear Medhat Salvador MD, A review of the medical record indicates additional documentation may be needed. Please review below and update the documentation accordingly. Clinical Indicators: Event note dated 04/06/25 - H/H 6.2/20.7 Type and Screen pending, consent for blood transfusion. Transfused 1 unit PRBC. BP 95/56 L Iron 25 L Event note 04/06/25 - Anemia, likely chronic Based on the above, could you clarify which of the following is the most likely type of anemia you are evaluating, treating, and/or monitoring? Iron deficiency anemia due to chronic blood loss possible, probable, suspected, cannot rule out etc. Iron deficiency anemia due to acute on chronic blood loss possible, probable, suspected, etc. Acute blood loss anemia suspected, cannot rule out, possible, etc. Anemia otherwise specified Other (explain) Clinically unable to determine (explain) Thank you, Sandie Woods, CCS, CDIS Use of terms such as suspected, likely, concern for, or probable (associated with a specific diagnosis that is being evaluated, monitored, or treated as if it exists) are acceptable and can be coded in the inpatient setting, when documented at the time of discharge. Please use your independent medical judgment in providing your response. THIS QUERY IS PART OF THE PERMANENT MEDICAL RECORD
== END 2025-04-09 15:39 | disposition home or self-care (01) | DRG 571 ==
LOC: HO.ED 04-06 01:42 → HO.EDOVER 04-06 02:21 → HO.S3 04-06 16:35
PROVIDERS: Internal Medicine; Nurse Practitioner Family; Physician Assistant Medical; Surgery; Admitting Provider Student in an Organized Health Care Education/Training Program; Emergency Provider Emergency Medicine; Visit Provider Hospitalist
PROC: 0JBG0ZZ Excision of Right Lower Arm Subcutaneous Tissue and Fascia, Open Approach (ICD-10-PCS; principal; 2025-04-07 13:00)
DX: L02.414 Cutaneous abscess of left upper limb (principal); Z59.02 Unsheltered homelessness; L02.413 Cutaneous abscess of right upper limb; L03.114 Cellulitis of left upper limb; D50.0 Iron deficiency anemia secondary to blood loss (chronic); E83.51 Hypocalcemia; B95.61 Methicillin susceptible Staphylococcus aureus infection as the cause of diseases classified elsewhere; F11.90 Opioid use, unspecified, uncomplicated; F17.210 Nicotine dependence, cigarettes, uncomplicated; F19.10 Other psychoactive substance abuse, uncomplicated; L03.113 Cellulitis of right upper limb; K02.9 Dental caries, unspecified; Z71.6 Tobacco abuse counseling
CPT/HCPCS: 36415; 73201; 74018; 80048; 80053; 80202; 80307; 81001; 82272; 82565; 82607; 82746; 83540; 83605; 83735; 84702; 85014; 85018; 85025; 85652; 86140; 86704; 86706; 86709; 86803; 86850; 86900; 86901; 86923; 87040; 87070; 87077; 87186; 87205; 87340; 87389; 99285; J1171; J1200; J1630; J1642; J2003; J2250; J2470; J2704; J2795; J3010; J3374; J7120; P9016; Q9967; S9485

== ENCOUNTER → 2025-04-05 20:14 | Outpatient (BNV) | payer MEDICARE, MEDICAID, SELFPAY | PROVIDERS: Emergency Provider Emergency Medicine; Visit Provider Radiology Diagnostic Radiology | DX: L03.114 Cellulitis of left upper limb (principal); L03.113 Cellulitis of right upper limb; Z95.9 Presence of cardiac and vascular implant and graft, unspecified | CPT/HCPCS: 73201; 74018 ==

== ENCOUNTER → 2025-04-06 02:11 | Outpatient (BNV) | payer MEDICARE, MEDICAID, SELFPAY | PROVIDERS: Admitting Provider Student in an Organized Health Care Education/Training Program; Emergency Provider Emergency Medicine; Visit Provider Internal Medicine | DX: L03.114 Cellulitis of left upper limb (principal); L03.113 Cellulitis of right upper limb; F19.10 Other psychoactive substance abuse, uncomplicated; F11.90 Opioid use, unspecified, uncomplicated | CPT/HCPCS: 99232 ==

== ENCOUNTER → 2025-04-06 02:11 | Outpatient (BNV) | payer MEDICARE, MEDICAID, SELFPAY | PROVIDERS: Admitting Provider Student in an Organized Health Care Education/Training Program; Emergency Provider Emergency Medicine; Visit Provider Nurse Practitioner Psychiatric/Mental Health | DX: F11.90 Opioid use, unspecified, uncomplicated (principal) | CPT/HCPCS: 99222; 99232 ==

== ENCOUNTER → 2025-04-06 02:11 | Outpatient (BNV) | payer MEDICARE, MEDICAID, SELFPAY | PROVIDERS: Admitting Provider Student in an Organized Health Care Education/Training Program; Emergency Provider Emergency Medicine; Visit Provider Nurse Practitioner Family | DX: L03.114 Cellulitis of left upper limb (principal); L03.113 Cellulitis of right upper limb | CPT/HCPCS: 99223; 99499 ==

== ENCOUNTER → 2025-04-06 02:11 | Outpatient (BNV) | payer MEDICARE, MEDICAID, SELFPAY | PROVIDERS: Admitting Provider Student in an Organized Health Care Education/Training Program; Emergency Provider Emergency Medicine | DX: F19.10 Other psychoactive substance abuse, uncomplicated (principal); L03.114 Cellulitis of left upper limb; L03.113 Cellulitis of right upper limb | CPT/HCPCS: 99222; 99232 ==